=== PATIENT | female | born 1970 | race Caucasian/White ===

== ENCOUNTER 2024-07-27 15:47 | Observation (INO) ==
--- NOTE | 2024-07-27 16:10 | Emergency Department Note ---
ED Provider Note History of Present Illness Chief Complaint: Abdominal Pain Stated Complaint: ABDOMINAL PAIN Time Seen by Provider: 07/27/24 16:03 Source: patient Mode of arrival: ambulatory Limitations: no limitations This patient is a 54-year-old female who presents to the emergency department for evaluation of abdominal pain. Patient reports that she has had abdominal pain for the past 3 to 4 days. Pain is a constant 5/10 but does get worse at times. She states it feels slightly better when she pushes on the area and feels worse when she is sitting or stretching. Pain is primarily in the left lower quadrant but radiates across the lower abdomen. She does have a history of ovarian cysts and has required surgery in the past. She reports associated bloating and states that she has some abdominal pain that increases at the end of urination. She feels somewhat constipated. Otherwise no urinary symptoms, no fever/chills or nausea/vomiting. No prior colonoscopy. Home Medications Medication Instructions Recorded Confirmed Type Gut Hero Probiotic 1 cap PO DAILY 07/27/24 07/27/24 History Turmeric Powder 1 tbsp PO DAILY 07/27/24 07/27/24 History atenolol 100 mg tablet 100 mg PO DAILY 07/27/24 07/27/24 History cholecalciferol (vitamin D3) 25 25 mcg PO DAILY 07/27/24 07/27/24 History mcg (1,000 unit) capsule magnesium 200 mg tablet 200 mg PO DAILY 07/27/24 07/27/24 History multivitamin 1 tab PO DAILY 07/27/24 07/27/24 History omega 0-nru-flb-fish oil 1,000 mg 1 cap PO DAILY 07/27/24 07/27/24 History (120 mg-180 mg) capsule (Fish Oil) tirzepatide (weight loss) 5 mg/0.5 5 mg subcut WK 07/27/24 07/27/24 History mL subcutaneous pen injector (Zepbound) Allergies Allergy/AdvReac Type Severity Reaction Status Date / Time No Known Allergies Allergy Unknown Verified 07/27/24 17:40 Past Med/Surg History Problem List (Updated 07/27/24 @ 23:19 by Marium Turner PA-C) Diverticulitis of sigmoid colon (Acute) History of ovarian cystectomy Asthma (Chronic) HTN (hypertension) (Chronic) Social History Smoking Status: Former smoker Preferred Language: Serbian Feels Safe at Home: Yes Physical Exam Vital Signs Vital Signs - 24 hr 07/27/24 15:53 07/27/24 16:22 07/27/24 16:24 Temperature 36.5 C Temperature Source Skin Pulse Rate 91 H 79 82 Pulse Rate from SpO2 Sensor 83 Pulse Rhythm Respiratory Rate 16 24 Respiratory Effort / Characteristics Non-Labored Spontaneous Respiratory Depth Normal Respiratory Pattern Regular Blood Pressure 131/88 125/84 Blood Pressure Mean 102 97 Pulse Oximetry 98 97 Oxygen Delivery Method Room Air Sepsis Recent Fever Within 48 Hours No Sepsis New/Unexplained Change in Mental Status N/A Sepsis Action Taken by Nursing No Action Required 07/27/24 16:33 07/27/24 16:38 07/27/24 17:00 Temperature Temperature Source Pulse Rate 78 79 77 Pulse Rate from SpO2 Sensor 77 78 Pulse Rhythm Regular Respiratory Rate 17 17 17 Respiratory Effort / Characteristics Respiratory Depth Respiratory Pattern Blood Pressure 111/77 103/72 Blood Pressure Mean 88 82 Pulse Oximetry 97 98 98 Oxygen Delivery Method Room Air Sepsis Recent Fever Within 48 Hours Sepsis New/Unexplained Change in Mental Status Sepsis Action Taken by Nursing 07/27/24 18:33 07/27/24 18:51 Temperature Temperature Source Pulse Rate 90 88 Pulse Rate from SpO2 Sensor Pulse Rhythm Respiratory Rate 18 23 Respiratory Effort / Characteristics Respiratory Depth Respiratory Pattern Blood Pressure 116/79 119/69 Blood Pressure Mean 91 85 Pulse Oximetry 98 Oxygen Delivery Method Sepsis Recent Fever Within 48 Hours Sepsis New/Unexplained Change in Mental Status Sepsis Action Taken by Nursing VITALS: Vitals are noted on the nurse's note and reviewed by myself. GENERAL: This is a 54-year-old female, in no acute distress, well-developed well-nourished. SKIN: The skin was without rashes. EARS: External auditory canals clear, tympanic membranes pearly desir without erythema or effusion bilaterally. EYES: Pupils equal round and reactive to light and accommodation. MOUTH: Mucous membranes moist. Tonsils are not enlarged. Pharynx without erythema or exudate. NECK: Supple without nuchal rigidity. No lymphadenopathy. HEART: Regular rate and rhythm without murmurs gallops or rubs. LUNGS: Clear to auscultation bilaterally without wheezes, rales or rhonchi. ABDOMEN: Positive bowel sounds x 4. Moderate tenderness in the left lower quadrant with more mild tenderness across lower abdomen. No guarding or rebound tenderness. NEURO: Patient was alert and oriented to person place and time. Course Administered Medications Sodium Chloride (Nss) 1,000 mls @ 80 mls/hr IV .[id number] [facility] Stop: 07/28/24 22:28 Last Admin: 07/27/24 23:15 Dose: 80 mls/hr Documented By: MITCHEL Piperacillin Sod/Tazobactam Sod (Zosyn) 4.5 gm in 100 mls @ 25 mls/hr IV Q8H [facility]; Protocol Stop: 08/07/24 00:00 Last Admin: 07/27/24 23:15 Dose: 25 mls/hr Documented By: MITCHEL Discontinued Medications Piperacillin Sod/Tazobactam Sod (Zosyn) 4.5 gm in 100 mls @ 200 mls/hr IV NOW ONE Stop: 07/27/24 19:00 Last Infusion: 07/27/24 20:21 Dose: Infused Documented By: Admin: 07/27/24 19:49 Dose: 200 mls/hr Documented By: JUANITA Ioversol (Optiray 320 100ml) 93 ml IV ONCE ONE Stop: 07/27/24 17:23 Last Admin: 07/27/24 17:22 Dose: 93 ml Documented By: ESTUARDO Ketorolac Tromethamine (Ketorolac Tromethamine 15 Mg/Ml Vial) 15 mg IV NOW STA Stop: 07/27/24 18:20 Last Admin: 07/27/24 18:27 Dose: 15 mg Documented By: JUANITA Ketorolac Tromethamine (Ketorolac Tromethamine 15 Mg/Ml Vial) 15 mg IV NOW STA Stop: 07/27/24 21:52 Last Admin: 07/27/24 22:03 Dose: 15 mg Documented By: JUANITA Potassium Chloride (Potassium Chloride Crtab 20 Meq Tabcr) 40 meq PO ONE ONE Stop: 07/27/24 22:30 Last Admin: 07/27/24 23:15 Dose: 40 meq Documented By: MITCHEL Medical Decision Making Differential Diagnosis Appendicitis, ovarian cyst, ovarian torsion, TOA, PID, infections, diverticulitis, UTI, obstruction, mesenteric ischemia, aortic pathology, inflammatory bowel disease, renal colic, PUD, pancreatitis, biliary pathology, hernia, volvulus, constipation, as well as other pathologies. Laboratory Data Attestation: I reviewed the patient's lab results. 07/27/24 16:11 07/27/24 16:11 Lab Results 07/27/24 07/27/24 Range/Units 16:07 16:11 WBC 16.50 H (4.8-10.8) K/ul RBC 4.38 (4.20-5.40) M/uL Hgb 13.5 (12.0-16.0) g/dl Hct 41.0 (37.0-47.0) % MCV 93.6 (80.0-100.0) fL MCH 30.8 (25.0-34.0) pg MCHC 32.9 (32.0-36.0) g/dL RDW Std Deviation 42.6 (36.4-46.3) fL RDW Coeff of Peggy 12.3 (11.5-14.5) % Plt Count 313 (130-400) K/uL MPV 10.5 (9.4-12.4) fL Immature Gran % (Auto) 0.5 % Neut % (Auto) 73.4 % Lymph % (Auto) 18.3 % [place] % (Auto) 6.6 % Eos % (Auto) 0.8 % Baso % (Auto) 0.4 % Neut # (Auto) 12.10 H (1.40-6.50) K/uL Lymph # (Auto) 3.02 (1.20-3.40) K/uL [place] # (Auto) 1.09 H (0.11-0.59) K/uL Eos # (Auto) 0.13 (0.00-0.50) K/uL Baso # (Auto) 0.07 (0.00-0.20) K/uL Immature Gran # (Auto) 0.09 (0.01-0.20) K/uL Sodium 139 (136-145) mmol/L Potassium 3.4 L (3.5-5.1) mmol/L Chloride 103 (98-107) mmol/L Carbon Dioxide 29 (21-32) mmol/L Anion Gap 7 (3-11) BUN 16 (6-23) mg/dl Creatinine 0.57 L (0.6-1.2) mg/dl Est Cr Clr Drug Dosing 100.6 ml/min eGFR 106.59 BUN/Creatinine Ratio 28.1 H (10-20) Glucose 81 (70-99(Fasting)) mg/dl Calcium 10.0 (8.6-10.3) mg/dl Magnesium 2.1 (1.7-2.4) mg/dl Total Bilirubin 0.5 (0.2-1.0) mg/dl AST 18 (13-39) U/L ALT 17 (7-52) U/L Alkaline Phosphatase 60 (34-104) U/L Total Protein 8.4 H (6.0-8.3) gm/dl Albumin 4.5 (3.4-5.0) gm/dl Globulin 3.9 (2.5-4.0) gm/dl Albumin/Globulin Ratio 1.2 (0.9-2) Lipase 35 (11-82) U/L Urine Color Yellow Urine Appearance Clear (Clear) Urine pH 7.0 (4.5-7.5) Ur Specific [place] 1.008 (1.000-1.030) Urine Protein Negative (Negative) Urine Glucose (UA) Negative (Negative) Urine Ketones Negative (Negative) Urine Blood Trace H (Negative) Urine Nitrite Negative (Negative) Urine Bilirubin Negative (Negative) Urine Urobilinogen Negative (Negative) Ur Leukocyte Esterase Trace H (Negative) Urine WBC (Auto) 0-5 (0-5) /hpf Urine RBC (Auto) 3-5 H (0-2) /hpf U Hyaline Cast (Auto) 0-2 (0-2) /lpf U Epithel Cells (Auto) 0-2 (0-2) /hpf Urine Bacteria (Auto) None Seen (None Seen) Imaging Data Attestation: I personally reviewed and interpreted this imaging study as follows: Radiologist's Impression: Abdomen/Pelvis CT 07/27/24 16:33 INDICATION: Left lower quadrant pain. COMPARISON: No relevant priors available. TECHNIQUE: Axial CT images of the abdomen and pelvis were obtained following IV contrast administration. Coronal and sagittal reformations were reviewed. FINDINGS: Visualized lung bases appear unremarkable. The liver, gallbladder, spleen, pancreas and adrenal glands appear unremarkable. No hydronephrosis. Sigmoid colonic wall thickening with adjacent inflammatory fat stranding and diverticula present. Inflamed diverticulum versus contained perforation/fluid collection adjacent to the sigmoid colon measuring 1.7 x 1.6 cm. Otherwise no free air identified. No evidence of bowel obstruction or appendicitis. Moderate amount of retained colonic stool. The urinary bladder appears unremarkable. No acute osseous abnormality evident. IMPRESSION: 1. Sigmoid diverticulitis. Inflamed diverticulum versus contained perforation/fluid collection adjacent to the sigmoid colon measuring 1.7 x 1.6 cm. 2. Moderate amount of retained colonic stool. Electronically signed by Olivier Moses 07-27-2024 6:22 PM MDM Narrative This patient is a 54-year-old female who presents to the emergency department for evaluation of lower abdominal pain. Labs revealed a leukocytosis of 16,000. Vital signs are within normal limits. Patient is afebrile. CT scan shows evidence of sigmoid diverticulitis with a possible contained perforation/fluid collection. At this time blood cultures were drawn and patient was given a dose of Zosyn. She was given Toradol for pain. I discussed the case with general surgery, Dr. Rodriguez who recommended admission for IV antibiotics. Case was then discussed with the [facility] service who agreed to evaluate the patient for further care. All findings were discussed with the patient and multiple questions answered for the patient and . They verbalized understanding of the assessment and treatment plan. Impression Diverticulitis of sigmoid colon Discharge Plan Visit Data Chief Complaint: Abdominal Pain Stated Complaint: ABDOMINAL PAIN ED Provider: [facility] Midlevel Provider: Marium Turner Discharge Problem: Diverticulitis of sigmoid colon Patient Disposition: Admitted As Inpatient Discharge Instructions Interventions: ED Discharge Assessment Last Done: 07/27/24 22:15
[2024-07-27 16:56] LABS: Basophils # (auto) 0.07 K/uL (0.00-0.20); Basophils % (auto) 0.4 %; Eosinophils # (auto) 0.13 K/uL (0.00-0.50); Eosinophils % (auto) 0.8 %; Hemoglobin 13.5 g/dl (12.0-16.0); Immature Granulocytes # (auto) 0.09 K/uL (0.01-0.20); Immature Granulocytes % (auto) 0.5 %; Lymphocytes # (auto) 3.02 K/uL (1.20-3.40); Lymphocytes % (auto) 18.3 %; Mean Corpuscular Hemoglobin 30.8 pg (25.0-34.0); Mean Corpuscular Hgb Conc 32.9 g/dL (32.0-36.0); Mean Corpuscular Volume 93.6 fL (80.0-100.0); Mean Platelet Volume 10.5 fL (9.4-12.4); Monocytes # (auto) 1.09 K/uL (0.11-0.59); Monocytes % (auto) 6.6 %; Neutrophils % (auto) 73.4 %; Platelet Count 313 K/uL (130-400); RDW Coefficient of Variation 12.3 % (11.5-14.5); RDW Standard Deviation 42.6 fL (36.4-46.3); Red Blood Count 4.38 M/uL (4.20-5.40)
[2024-07-27 16:57] LABS: Appearance Urine Clear (Clear); Bacteria Urine Automated None Seen (None Seen); Bilirubin Urine Negative (Negative); Blood Urine Trace (Negative); Cast Urine Automated 0-2 /lpf (0-2); Color Urine Yellow; Epithelial Cell Urine Auto 0-2 /hpf (0-2); Glucose Urine UA Negative (Negative); Ketones Urine Negative (Negative); Leukocyte Esterase Urine Trace (Negative); Nitrite Urine Negative (Negative); Protein Urine Negative (Negative); Specific Gravity Urine 1.008 (1.000-1.030); Urobilinogen Urine Negative (Negative); WBC Urine Automated 0-5 /hpf (0-5)
[2024-07-27 17:05] LABS: Albumin Globulin Ratio 1.2 (0.9-2); Albumin Level 4.5 gm/dl (3.4-5.0); BUN Creatinine Ratio 28.1 (10-20); Bilirubin,Total 0.5 mg/dl (0.2-1.0); Creatinine Clr Calc Pharmacy 100.6 ml/min; Globulin 3.9 gm/dl (2.5-4.0); Potassium 3.4 mmol/L (3.5-5.1); Total Protein 8.4 gm/dl (6.0-8.3)
[2024-07-27] MEDS: OPTIRAY 320 100ml IV ONE (17:22)
--- NOTE | 2024-07-27 18:22 | CT Scan Report ---
INDICATION: Left lower quadrant pain. COMPARISON: No relevant priors available. TECHNIQUE: Axial CT images of the abdomen and pelvis were obtained following IV contrast administration. Coronal and sagittal reformations were reviewed. FINDINGS: Visualized lung bases appear unremarkable. The liver, gallbladder, spleen, pancreas and adrenal glands appear unremarkable. No hydronephrosis. Sigmoid colonic wall thickening with adjacent inflammatory fat stranding and diverticula present. Inflamed diverticulum versus contained perforation/fluid collection adjacent to the sigmoid colon measuring 1.7 x 1.6 cm. Otherwise no free air identified. No evidence of bowel obstruction or appendicitis. Moderate amount of retained colonic stool. The urinary bladder appears unremarkable. No acute osseous abnormality evident. IMPRESSION: 1. Sigmoid diverticulitis. Inflamed diverticulum versus contained perforation/fluid collection adjacent to the sigmoid colon measuring 1.7 x 1.6 cm. 2. Moderate amount of retained colonic stool. Electronically signed by Olivier Moses 07-27-2024 6:22 PM
[2024-07-27] MEDS: KETOROLAC TROMETHAMINE 15 MG/ML VIAL IV STA ×2 (18:27→22:03)
[2024-07-27] MEDS: PIPERACILLIN/TAZOBACTAM 4.5 GM/100 ML BAG IV ONE (19:49)
[2024-07-27 19:54] LABS: Magnesium 2.1 mg/dl (1.7-2.4)
--- NOTE | 2024-07-27 20:07 | History & Physical Report ---
Date of Service July 27, 2024 Assessment & Plan (1) Diverticulitis of sigmoid colon: Plan: Patient is a 54 year old female presenting to the emergency department today with complaint of abdominal pain described as "burning that radiates to my back" x 3 days. Past medical history of Hypertension, Grave's disease (currently in remission), s/p ovarian cystectomy, and history of knee surgery. * Admit to Medsurg * NPO with Iv fluid replacement * Continue Zosyn Q8 hours * Surgical consult ordered * Trend CBC, BMP- AM labs ordered * Toradol as needed for pain (2) HTN (hypertension): Plan: Continue home regimen with Atenolol Plan DVT Ppx: SCDs Code status: Full PCP: Dr. Manoj Ogden Dispo: Admit to Med/Surg Patient seen in collaboration with Dr. Estelle Johnson. Please see addendum.I spent a total of 60 minutes coordinating, documenting and providing care for this patient excluding time spent in the performance of separately billed services or time spent by another provider/QHP. History of Present Illness Primary Care Provider: Manoj Ogden MD Patient is a 54 year old female presenting to the emergency department today with complaint of abdominal pain described as "burning that radiates to my back" x 3 days. Past medical history of Hypertension, Grave's disease (currently in remission), s/p ovarian cystectomy, and history of knee surgery. In the emergency department, she is hemodynamically stable and nontoxic appearing. Leukocytosis with white count 16.5. No evidence of impaired renal functioning or UTI. Blood culture pending. CT of Abdomen and pelvis revealing sigmoid diverticulitis with inflamed diverticulum versus contained perforation/fluid collection adjacent to the sigmoid colon measuring 1.7 x 1.6 cm. Moderate amount of retained colonic stool. Zosyn initiated. Pain was controlled at the time of my exam, as she had received ketorolac prior. Associated symptoms of bloating, mild discomfort with urination, and constipation was reported. She denies fevers, illness, chest pain, breathing difficulty, N/V/D, changes to diet, skin rashes or lesions. History obtained primarily from the patient. Her was at bedside and provided additional information regarding history of present illness. Allergies Allergy/AdvReac Type Severity Reaction Status Date / Time No Known Allergies Allergy Unknown Verified 07/27/24 17:40 Home Medications Medication Instructions Recorded Confirmed Type Gut Hero Probiotic 1 cap PO DAILY 07/27/24 07/27/24 History Turmeric Powder 1 tbsp PO DAILY 07/27/24 07/27/24 History atenolol 100 mg tablet 50 mg PO BID 07/27/24 07/27/24 History cholecalciferol (vitamin D3) 25 25 mcg PO DAILY 07/27/24 07/27/24 History mcg (1,000 unit) capsule magnesium 200 mg tablet 200 mg PO DAILY 07/27/24 07/27/24 History multivitamin 1 tab PO DAILY 07/27/24 07/27/24 History omega 2-wki-vdb-fish oil 1,000 mg 1 cap PO DAILY 07/27/24 07/27/24 History (120 mg-180 mg) capsule (Fish Oil) tirzepatide (weight loss) 5 mg/0.5 5 mg subcut WK 07/27/24 07/27/24 History mL subcutaneous pen injector (Zepbound) Past Med/Surg History Problem List (Updated 07/28/24 @ 08:52 by Frank Rodriguez MD) Diverticulitis large intestine w/o perforation or abscess w/o bleeding Diverticulitis of sigmoid colon (Acute) History of ovarian cystectomy Asthma (Chronic) HTN (hypertension) (Chronic) Social History Smoking Status: Never smoker Hx Alcohol Use: Yes Hx Substance Use: No Preferred Language: Latvian [employer] Required: No Beliefs That Will Affect Care: None Current Living Situation: Spouse Feels Safe at Home: Yes Safety Concerns: Feels Safe At This Time Review of Systems Review of Systems: All systems reviewed & are unremarkable except as noted in HPI & below Physical Exam Constitutional: WD/WN, vitals as above Eyes: PERRL, conjunctivae normal, anicteric sclerae ENMT: external ear and nose normal, oropharynx normal Respiratory: normal respiratory effort, lungs clear to auscultation Cardiovascular: RRR, no murmur, no edema Gastrointestinal (Abdomen): Inspection/Auscultation: normal bowel sounds Percussion/Palpation: + abdomen tender (periumbilical, LUQ, LLQ) and abdomen soft; no abdominal mass and no ascites Musculoskeletal: no cyanosis or clubbing, extremities motor strength 5/5 Skin: no rashes, warm and dry Neurologic: PERRL, EOMI, accommodation nl, no face palsy, no dysarthria Psychiatric: A+Ox3, euthymic affect Results & Data Results & Data Vital Signs (Past 12 Hours) Vital Signs Temp Pulse Resp BP Pulse Ox O2 Del Method 07/27/24 18:33 90 18 116/79 98 07/27/24 17:00 77 17 103/72 98 07/27/24 16:38 79 17 98 Room Air 07/27/24 16:33 78 17 111/77 97 07/27/24 16:24 82 24 125/84 97 07/27/24 16:22 79 07/27/24 15:53 36.5 C 91 H 16 131/88 98 Room Air Laboratory Results Short CBC 07/27/24 Range/Units 16:11 WBC 16.50 H (4.8-10.8) K/ul Hgb 13.5 (12.0-16.0) g/dl Hct 41.0 (37.0-47.0) % Plt Count 313 (130-400) K/uL BMP 07/27/24 16:11 Sodium 139 Potassium 3.4 L Chloride 103 Carbon Dioxide 29 BUN 16 Creatinine 0.57 L Glucose 81 Calcium 10.0 Liver Function 07/27/24 Range/Units 16:11 Total Bilirubin 0.5 (0.2-1.0) mg/dl AST 18 (13-39) U/L ALT 17 (7-52) U/L Alkaline Phosphatase 60 (34-104) U/L Albumin 4.5 (3.4-5.0) gm/dl Urine 07/27/24 Range/Units 16:07 Urine Color Yellow Urine Appearance Clear (Clear) Urine pH 7.0 (4.5-7.5) Ur Specific [place] 1.008 (1.000-1.030) Urine Protein Negative (Negative) Urine Glucose (UA) Negative (Negative) I personally reviewed and interpreted the labs. Diagnostic Findings Abdomen/Pelvis CT 07/27/24 16:33 INDICATION: Left lower quadrant pain. COMPARISON: No relevant priors available. TECHNIQUE: Axial CT images of the abdomen and pelvis were obtained following IV contrast administration. Coronal and sagittal reformations were reviewed. FINDINGS: Visualized lung bases appear unremarkable. The liver, gallbladder, spleen, pancreas and adrenal glands appear unremarkable. No hydronephrosis. Sigmoid colonic wall thickening with adjacent inflammatory fat stranding and diverticula present. Inflamed diverticulum versus contained perforation/fluid collection adjacent to the sigmoid colon measuring 1.7 x 1.6 cm. Otherwise no free air identified. No evidence of bowel obstruction or appendicitis. Moderate amount of retained colonic stool. The urinary bladder appears unremarkable. No acute osseous abnormality evident. IMPRESSION: 1. Sigmoid diverticulitis. Inflamed diverticulum versus contained perforation/fluid collection adjacent to the sigmoid colon measuring 1.7 x 1.6 cm. 2. Moderate amount of retained colonic stool. Electronically signed by Olivier Moses 07-27-2024 6:22 PM Code Status & VTE Plan Code Status FULL VTE Prophylaxis Plan VTE Prophylaxis will be ordered: Yes Supervising Physician Co-Signing Physician Notes Pt was seen and examined by myself, Estelle Johnson MD on the day of service. Care was coordinated with Latesha HURLEY and MEI Alvarenga. Pt presenting with abdominal pain, CT abd pelvis concerning for diverticulitis with abscess Possible sepsis, mild tachycardia, leukocytosis IV Zosyn NPO, prn pain control, antiemetics as needed General surgery consult Otherwise as above. I spent a total [id number] coordinating, documenting, and providing care for this patient excluding time spent in the performance of separately billed services
[2024-07-27] MEDS ORDERED: ONDANSETRON INJ 2 MG/ML 2 ML VIAL IV PRN (22:29)
[2024-07-27] MEDS: PIPERACILLIN/TAZOBACTAM 4.5 GM/100 ML BAG IV SCH (23:15)
[2024-07-27] MEDS: SODIUM CHLORIDE 0.9% 1,000 ML IV SCH (23:15)
[2024-07-27] MEDS: POTASSIUM CHLORIDE CRTAB 20 MEQ TABCR PO ONE (23:15)
[2024-07-27] MEDS ORDERED: ATENOLOL 50 MG TABLET PO SCH (23:55)
--- OUTSIDE RECORDS SUMMARY | 2024-07-28 04:24 | External Medical Summary | Summary of Care ---
Author Name Unknown Organization [facility] Address [address] [facility] [place] [address] Phone [phone] Care Team Providers Care Insurance Policy Clerk Name Role Phone Alin CARPIO MD, Manoj Sosa Primary Care Provider [phone] Reason for Visit * Reason Comments Cold Symptoms Encounter Details Date Type Department Care Team (Late st Contact Info) Description 02/28/2024 11:40 AM EST Office Visit General Internal Medicine [facility] [address] [place] [address] Albino Silva [address] [facility] [address] Acute laryngotracheitis* Allergies No known active allergiesdocumented as of this encounter (statuses as of 02/28/2024) Medications Cholecalciferol (VITAMIN D3) 25 MCG (1000 UT) CAPS Take 1 Capsule by mouth in the morning. 30 Cap 12/04/19 20 Active Zepbound 5 MG/0.5ML Subcutaneous Solution Auto-injector (Tirzepatide-Weight Management)Indication s:Obesity, Class II, BMI 35-39.9, isolated (see actual BMI),HTN, goal below 140/90,Abnormal weight gain Inject 5 mg under the skin once a week. 2 mL 2 01/29/20 24 Active Atenolol 100 MG Oral Tablet (Tenormin) TAKE 1/2 TABLET BY MOUTH TWICE DAILY 90 Tablet 02/03/20 24 Active Benzonatate 200 MG Oral CapsuleIndications:Ac megan laryngotracheitis Take 1 Capsule by mouth 3 times a day as needed for Cough. 30 Capsule 1 02/28/20 24 Active Levonorgestrel 20 MCG/24HR Intrauterine Intrauterine Device Inserted 04/29/2015 1 Each 0 04/29/19 16 024 Discontin ued(End of Procedure ) Cyclobenzaprine HCl 10 MG Oral Tablet (Flexeril) Take 1 Tab by mouth at bedtime as needed for Muscle spasms. 10 Tab 01/20/20 21 024 Discontin ued(Medic ation List Clean Up) documented as of this encounter (statuses as of 02/28/2024) Active Problems Problem Noted Date Diagnosed Date Allergic rhinitis 01/28/2007 Headache 11/09/2004 Esophageal reflux 07/02/2001 Palpitations 07/02/2001 Female genital symptoms 07/26/2000 Overview (01/21/2017): ICD-10 update of inactive term Lipoma Overview (01/21/2017): ICD-10 update of inactive term documented as of this encounter (statuses as of 02/28/2024) Resolved Problems Problem Noted Date Diagnosed Date Resolved Date Asthma with severity to be determined 10/13/2009 12/17/2012 Overview (08/01/2015): Per Asthma Taxonomy ICD-10 update of inactive term ADVANCE DIRECTIVE INFORMATION 09/25/2004 02/24/2024 Overview (09/25/2004): No, Advance Directive brochure given to patient at prior appointment. Asthma, allergic 07/02/2001 10/13/2009 documented as of this encounter (statuses as of 02/28/2024) Immunizations Name Administration Dates Next Due Covid-19 Ad26, Single Dose (Navdeep/J&J) 08/01/2020 Seasonal Influenza Vac., MDV , IM, 0.5 mL (Fluzone) 03/13/2013,01/23/2012,02/18/2007 Seasonal Influenza, PF, 6 M & above, IM , (FluLaval or Fluzone) 01/14/2023,05/01/2022,02/28/2021,2019,05/16/2018 TDAP (age 10 and older)(Boostrix) 04/17/2022,06/2011 Zoster Vaccine Recombinant (Shingrix) 12/04/2019 ,06/04/2019 documented as of this encounter Social History Tobacco Use Types Packs/Day Years Used Date Smoking Tobacco: Former Cigarettes 1 10 0 04/22/1982 - 04/22/1992 Smokeless Tobacco: Never Comments:no passive smoke ex posures Alcohol Use Standard Drinks/Week Comments Not Currently 0 (1 standard drink = 0.6 oz pur e alcohol) rarely PHQ-2 Answer Date Recorded PHQ-2 Score 0 11/27/2018 Hunger Vital Sign Answer Date Recorded Within the past 12 months, y ou worried that your food would run out before you got the money to buy more. Never true 01/17/20 24 Within the past 12 months, t he food you bought just didn't last and you didn't have money to get more. Never true 01/17/2024 Childcare Answer Date Recorded Do you feel overwhelmed with taking care of a child, family member or friend? No 01/17/2024 Does your family need help f inding childcare? (Household - for ages 0-17 years) Not on file 01/17/2024 Clothing Answer Date Recorded Have you been unable to get clothing when it was really needed? No 01/17/2024 Is your family able to get c lothes or diapers when needed? (Household - for ages 0-17 years) Not on file 01/17/2024 Personal Safety Answer Date Recorded Do you feel unsafe or have concerns for your saf ety? No 01/17/2024 Do you have concerns for you r family's safety? (Household - for ages 0-17 years) Not on file 01/17/2024 Utilities Answer Date Recorded Do you have trouble paying y our heating, water, or electric bill? No 01/17/2024 Is your family able to pay t he heat, water, or electric bill? (Household - for ages 0-17 years) Not on file 01/17/2024 Does your family have access to good internet? (Household - for ages 0-17 years) Not on file 01/17/2024 Employment Status Answer Date Recorded Are you unemployed or without regular income? No 01/17/2024 Does the household have a re gular source of income? (Household - for ages 0-17 years) Not on file 01/17/2024 Social Connections Answer Date Recorded How often do you feel lonely or isolated from th ose around you? Never 01/17/2024 Financial Resource Strain Answer Date R ecorded Do you have any trouble payi ng for your medications, or do you think you might in the future? No 01/17/2024 Does your family have troubl e paying for medicine? (Household - for ages 0-17 years) Not on file 01/17/2024 Transportation Needs Answer Date Record ed Do you have trouble getting a ride to medical visits or work? (Adult - for ages 18 years and over) Not on file 01/17/2024 Does your family have a hard time getting a ride to doctors visits? (Household - for ages 0-17 years) Not on file 01/17/2024 Has lack of transportation k ept you from medical appointments, meetings, work, or from getting things needed for daily living? Check all that apply. No 01/17/2024 Do you (or your family) have trouble finding or paying for a ride (transportation)? (Household - for ages 0-17 years) Not on file 01/17/2024 Housing Stability Answer Date Recorded Do you currently live in a s helter or have no steady place to sleep at night? No 01/17/2024 Do you think you are at risk of becoming homeless? (Adult - for ages 18 years and over) Not on file 01/17/2024 Does your family worry about paying for your home or becoming homeless? (Household - for ages 0-17 years) Not on file 0 01/17/2024 Are you homeless or worried that you might be in the future? No 01/17/2024 Are you (or your family) antonia eless or worried that you might be in the future? (Household - for ages 0-17 years) Not on file Food Insecurity Answer Date Recorded Do you need food for this week? No 01/17/2024 Are you able to get enough f ood for your family? (Household - for ages 0-17 years) Not on file 01/17/2024 Does your family need food t his week? (Household - for ages 0-17 years) Not on file 01/17/2024 Do you always have enough fo od for your family? 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 Not on file Not on file Not on file Not on file Not on file Not on file documented as of this encounter Last Filed Vital Signs Vital Sign Reading Time Taken Comments Blood Pressure 122/74 02/28/2024 11:39 AM EST Pulse 66 02/28/2024 11:39 AM EST Temperature 36.7 °C (98.1 °F) 02/28/2024 11:[address] Respiratory Rate - - Oxygen Saturation 97% 02/28/2024 11:39 AM EST Inhaled Oxygen Concentration - - Weight 75 kg (165 lb 4.8 oz) 02/28/2024 11:39 AM EST Height 157.5 cm (5' 2.01") 02/28/2024 11:[address] Body Mass Index 30.23 02/28/2024 11:39 AM EST documented in this encounter Progress Notes * Albino Silva, DO - 02/28/2024 11:46 AM EST Subjective Coral Greenberg is a 53 year old female. Chief Complaint Patient presents with Cold Symptoms Text in this note was generated using an ambient documentation service. I discussed the use of a device to record and summarize our discussion today. All persons present during the encounter consented to its use. HPI: Patient presents for cough, congestion. History of Present Illness The patient, with a history of asthma, presents with respiratory symptoms that began on Saturday. Initially, she experienced classic cold symptoms including a runny nose, sneezing, and watery eyes. Sheinitially attributed these symptoms to allergies. However, the symptoms then developed into chest congestion. Does not note any increased wheezing, orthopnea or dyspnea. Has been keeping well hydrated. Does have known history of asthma. No fever chills. No sore throat or dysphagia. No sinus pain/pressure. No ear congestion or drainage PMH: Patient Active Problem List Diagnosis Female genital symptoms Esophageal reflux Palpitations Lipoma Headache Allergic rhinitis Current Outpatient Medications Medication Sig Dispense Refill Cholecalciferol (VITAMIN D3) 25 MCG (1000 UT) CAPS Take 1 Capsule by mouth in the morning. 30 Cap 0 Zepbound 5 MG/0.5ML Subcutaneous Solution Auto-injector (Tirzepatide-Weight Management) Inject 5 mgunder the skin once a week. 2 mL 2 Atenolol 100 MG Oral Tablet (Tenormin) TAKE 1/2 TABLET BY MOUTH TWICE DAILY 90 Tablet 0 No current facility-administered medications for this visit. 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 Asthma, allergic Depressive disorder, not elsewhere classified HTN, goal to be determined Past Surgical History: Procedure Laterality Date COLPOSCOPY OF CERVIX W/BIOPSY LAPAROSCOPY DIAGNOSTIC 7.29.05 Ruptured L hemorhagic ovarian cyst [facility] MRI BRAIN WITH CONTRAST 2.14.02 normal mri brain Review of patient's allergies indicates: No Known Allergies Family History Problem Relation Name Age of Onset Hypertension Mother Allergies Father hayfever Other (Other) Father vertigo Atrial fibrillation Father Asthma Brother Cervical Cancer Grandmother (Maternal) Cancer Grandfather (Maternal) Lung Cancer Stroke Grandmother (Paternal) @89 Heart Disorder Grandfather (Paternal) chf Alcohol and Other Disorders Associated Grandfather (Paternal) Heart Disorder Aunt (Unspecified) mi No Past Hx None no breast/ovarian/colon cancer Family Status Relation Status Mo Alive Fa Alive Sis Alive Bro Alive MGMA MGFA at age 87 Lung Cancer PGMA at age 89 PGFA AUNT (Not Specified) NONE (Not Specified) Social History Socioeconomic History Marital status: Spouse name: Not on file Number of children: 2 Years of education: Not on file Highest education level: Not on file Occupational History Occupation: staff assitant Employer: [employer] [phone] Comment: [employer] Employer: [employer] Tobacco Use Smoking status: Former Current packs/day: 0.00 Average packs/day: 1 pack/day for 10.0 years (10.0 ttl pk-yrs) Types: Cigarettes Start date: 04/22/1982 Quit date: 04/22/1992 Years since quittin.8 Smokeless tobacco: Never Tobacco comments: no passive smoke exposures Vaping Use Vaping status: Never Used Substance and Sexual Activity Alcohol use: Not Currently Comment: rarely Drug use: No Sexual activity: Yes Partners: Male control/protection: Condom Other Topics Concern Service Not Asked Blood Transfusions Not Asked Caffeine Concern Not Asked Occupational Exposure Not Asked Hobby Hazards Not Asked Sleep Concern Not Asked Stress Concern Not Asked Weight Concern Not Asked Special Diet Not Asked Back Care Not Asked Exercise Not Asked Bike Helmet Not Asked Seat Belt Not Asked Self-Exams Yes Comment: breast, occ Social History Narrative [employer] [place] [place] INFORMATION ENVIRONMENTAL HISTORY: Type of Home: [place] Type of Heating System: Oil and Forced air Air Conditioning: No Basement: None Home have cockroaches: No Irritants in the home: None Patient's bedroom location: Floor: first Type of rogelio: Carpeting Beds: Number: 1 Type of beds: Mattress Pillows: Number: 1 Type of pillows: Foam Bedroom contains: Minimal items Pets: 1 cat(s) [place]: No [employer] optometric assistant; 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 Entered by: Fernando Brown MD 01/28/2007 Social Needs Financial Resource Strain: Low Risk (01/17/2024) Financial Resource Strain Do you have any trouble paying for your medications, or do you think you might in the future? (Adult - for ages 18 years and over): No Does your family have trouble paying for medicine? (Household - for ages 0-17 years): Not on file Food Insecurity: No Food Insecurity (01/17/2024) Food Insecurity Do you need food for this week? (Adult - for ages 18 years and over): No Are you able to get enough food for your family? (Household - for ages 0-17 years): Not on file Does your family need food this week? (Household - for ages 0-17 years): Not on file Do you always have enough food for your family? (Household - for ages 0-17 years): Not on file Transportation Needs: No Transportation Needs (01/17/2024) Transportation Needs Do you have trouble getting a ride to medical visits or work? (Adult - for ages 18 years and over):Not on file Does your family have a hard time getting a ride to doctors’ visits? (Household - for ages 0-17 years): Not on file Has lack of transportation kept you from medical appointments, meetings, work, or from getting things needed for daily living? Check all that apply. (Adult - for ages 18 years and over): No Do you (or your family) have trouble finding or paying for a ride (transportation)? (Household - for ages 0-17 years): Not on file Social Connections: Socially Integrated (01/17/2024) Social Connections How often do you feel lonely or isolated from those around you? (Adult - for ages 18 years and over): Never Housing Stability: Low Risk (01/17/2024) Housing Stability Do you currently live in a alf or have no steady place to sleep at night? (Adult - for ages 18 years and over): No Do you think you are at risk of becoming homeless? (Adult - for ages 18 years and over): Not on file Does your family worry about paying for your home or becoming homeless? (Household - for ages 0-17 years): Not on file Are you homeless or worried that you might be in the future? (Adult - for ages 18 years and over): No Are you (or your family) homeless or worried that you might be in the future? (Household - for ages0-17 years): Not on file Review of Systems Constitutional: Negative for chills and fever. HENT: Positive for congestion and postnasal drip. Negative for ear pain, sinus pressure, sinus painand sore throat. Eyes: Negative for photophobia and itching. Respiratory: Positive for cough. Negative for apnea, chest tightness, shortness of breath and wheezing. Cardiovascular: Negative for chest pain and palpitations. Gastrointestinal: Negative for abdominal distention, abdominal pain, nausea and vomiting. Genitourinary: Negative for dysuria and frequency. Musculoskeletal: Negative for arthralgias and myalgias. Skin: Negative for pallor and rash. Neurological: Negative for dizziness, light-headedness and headaches. Psychiatric/Behavioral: Negative for sleep disturbance. The patient is not nervous/anxious. Objective BP 122/74 (BP Site: Left Arm, BP Position: Sitting, BP Cuff Size: Regular) | Pulse 66 | Temp 36.7 °C (98.1 °F) (Tympanic) | Ht 1.575 m (5' 2.01") | Wt 75 kg (165 lb 4.8 oz) | SpO2 97% | BMI 30.23 kg/m² | BSA 1.81 m² Physical Exam Constitutional: General: She is not in acute distress. Appearance: She is not ill-appearing. HENT: Head: Normocephalic and atraumatic. Right Ear: Tympanic membrane, ear canal and external ear normal. Left Ear: Tympanic membrane, ear canal and external ear normal. Nose: Congestion present. No rhinorrhea. Comments: Post nasal drip present Mouth/Throat: Mouth: Mucous membranes are moist. Pharynx: Oropharynx is clear. Eyes: Extraocular Movements: Extraocular movements intact. Conjunctiva/sclera: Conjunctivae normal. Pupils: Pupils are equal, round, and reactive to light. Cardiovascular: Rate and Rhythm: Normal rate and regular rhythm. Pulses: Normal pulses. Heart sounds: Normal heart sounds. No murmur heard. No friction rub. No gallop. Pulmonary: Effort: Pulmonary effort is normal. Breath sounds: Normal breath sounds. No wheezing, rhonchi or rales. Abdominal: General: Bowel sounds are normal. There is no distension. Palpations: Abdomen is soft. There is no mass. Tenderness: There is no abdominal tenderness. Musculoskeletal: General: No deformity. Normal range of motion. Cervical back: Normal range of motion and neck supple. Right lower leg: No edema. Left lower leg: No edema. Lymphadenopathy: Cervical: No cervical adenopathy. Skin: General: Skin is warm and dry. Coloration: Skin is not jaundiced. Findings: No rash. Neurological: General: No focal deficit present. Mental Status: She is oriented to person, place, and time. Cranial Nerves: No cranial nerve deficit. Sensory: No sensory deficit. Motor: No weakness. Psychiatric: Mood and Affect: Mood normal. Behavior: Behavior normal. ASSESSMENT/PLAN: Acute laryngotracheitis (Primary) - Benzonatate 200 MG Oral Capsule; Take 1 Capsule by mouth 3 times a day as needed for Cough. Plan: Patient presents to office with likely viral URI. Seems to be getting better. No signs of LRTI or asthma exacerbation at this time Continue stay well hydrated. Benzonatate 200 mg three times daily as needed for cough. Counseled on common side effects which tomonitor Continue other medications. Blood pressure currently managed on atenolol 100 mg daily Should follow-up with office if any persistent or worsening symptoms Follow Up: Return if symptoms worsen or fail to improve, for Follow up next routine with PCP as scheduled. | For: Follow up next routine with PCP as scheduled | Check-out note: Follow up as needed Albino Silva DO documented in this encounter Nursing Notes * Tabitha Pinedo CMA - 02/28/2024 11:38 AM EST Patient presents today with complaints of cold symptoms. She states that she has a cough that will cause sharp back pain. She is also having chest congestion. She initially was having sinus congestion with PND, but now have chest symptoms. She will cough to the point that she becomes dizzy. documented in this encounter Plan of Treatment Upcoming Encounters Date Type Department Care Team (Late st Contact Info) Description 03/24/2024 7:30 AM EST Imaging Radiology [facility] [address] [facility] [address] [facility] [place] [id number] 04/28/2024 7:40 AM EST Office Visit Family Practice [facility] [address] [facility] [address] [place] [address] Manoj Ogden III, MD [address] [facility] [place] [address] 05/06/2024 8:40 AM EST Office Visit Nutrition & Weight Management, [facility] [address] [place] [id number] Eleanor Bowsre PA-C [address] [place] [id number] Health Maintenance Due Date Last Done Comments Hepatitis B Vaccine (1 of 3 - 19+ 3-dose series) 1987 Colonoscopy 2013 Sigmoidoscopy 2013 Fecal Occult Blood Test 12/03/2019 12/02/2018 Depression Screening 06/04/2020 06/04/2019 COVID-19 Vaccine ( season) 2023 08/01/2020 Influenza Vaccine (FLU shot) (#1) 2023 01/14/2023, 05/01/2022, 02/28/2021, Additional history exists Mammogram 03/21/2024 03/21/2023, 01/21, 01/18/2021, Additional history exists Cologuard 05/29/2026 05/29/2023, 04/23, 05/14/2023, Additional history exists Colorectal Cancer Screening 05/29/2026 Diabetes Screening 07/17/2026 07/18/2023, 0 04/29/2023, 10/10/2021, Additional history exists Pap Smear 01/22/2027 01/23/2024, 12/21, 10/16/2013, Additional history exists Lipid Panel 04/29/2028 04/29/2023, 04/23, 03/16/2013, Additional history exists Cervical Cancer Screening 01/22/2029 HPV/Co-Test 01/22/2029 01/23/2024 DTap/Tdap Vaccines (3 - Td or Tdap) 04/17/2032 04/17/2022, 01/23/2012 Zoster Vaccines Completed 12/04/2019, 06/04/2019 HPV (Gardasil) Vaccine Aged Out No lo nger eligible based on patient's age to complete this topic MENINGOCOCCAL (MENACTRA/MENVEO) Aged Out No longer eligible based on patient's age to complete this topic Pneumococcal Vaccine: Pediatrics (0 to 5 Years) and At-Risk Patients (6 to 64 Years) Aged Out No longer eligible based on patient's age to complete this topic documented as of this encounter Medical Devices Not on filedocumented as of this encounter Visit Diagnoses Diagnosis Acute laryngotracheitis- Primary Acute laryngotracheitis without mention of obstruction documented in this encounter Care Teams Insurance Policy Clerk Relationship Specialty Start Date End Date Manoj Ogden III, MD [address] [place] [address] PCP - General 06/03/1997 documented as of this encounter
--- OUTSIDE RECORDS SUMMARY | 2024-07-28 04:24 | External Medical Summary | Summary of Care ---
Author Name Unknown Organization [facility] Address [address] [place] [address] Phone [phone] Care Team Providers Care Scooping Machine Tender Name Role Phone Alin CARPIO MD, Manoj Sosa Primary Care Provider [phone] Reason for Visit * Reason Onset Date Comments Physical-Exam Medication Administration 05/05/2024 Flu an d/or Pneumo Inj Encounter Details Date Type Department Care Team (Latest Contact Info) Description 05/05/2024 9:20 AM EST Office Visit Family Practice [facility] [address] [facility] [place] [address] Manoj Ogden III, MD [facility] [address] Routine medical exam*; Class 2 severe obesity due to excess calories with serious comorbidity and body mass index (BMI) of 35.0 to 35.9 in adult (HCC); Need for prophylactic vaccination and inoculation against influenza; Screening for cardiovascular condition Allergies No known active allergiesdocumented as of this encounter (statuses as of 2024) Medications Cholecalciferol (VITAMIN D3) 25 MCG (1000 UT) CAPS Take 1 Capsule by mouth in the morning. 30 Cap 12/04/19 20 Active Atenolol 100 MG Oral Tablet (Tenormin) TAKE 1/2 TABLET BY MOUTH TWICE DAILY 90 Tablet 02/03/20 24 Active Benzonatate 200 MG Oral CapsuleIndications:Ac stebbins laryngotracheitis Take 1 Capsule by mouth 3 times a day as needed for Cough. 30 Capsule 1 02/28/20 24 Active Additional Information Patient not taking.Reported on 05/06/2024 Zepbound 5 MG/0.5ML Subcutaneous Solution Auto-injector (Tirzepatide-Weight Management)Indication s:Obesity, Class II, BMI 35-39.9, isolated (see actual BMI),HTN, goal below 140/90,Abnormal weight gain Inject 5 mg under the skin once a week. 6 mL 05/01/19 25 Active documented as of this encounter (statuses as of 2024) Active Problems Problem Noted Date Diagnosed Date Class 2 severe obesity due t o excess calories with serious comorbidity and body mass index (BMI) of 35.0 to 35.9 in adult 05/05/2024 Allergic rhinitis 01/28/2007 Headache 11/09/2004 Esophageal reflux 07/02/2001 Palpitations 07/02/2001 Female genital symptoms 07/26/2000 Overview (01/21/2017): ICD-10 update of inactive term Lipoma Overview (01/21/2017): ICD-10 update of inactive term documented as of this encounter (statuses as of 2024) Resolved Problems Problem Noted Date Diagnosed Date Resolved Date Asthma with severity to be determined 10/13/2009 12/17/2012 Overview (08/01/2015): Per Asthma Taxonomy ICD-10 update of inactive term ADVANCE DIRECTIVE INFORMATION 09/25/2004 02/24/2024 Overview (09/25/2004): No, Advance Directive brochure given to patient at prior appointment. Asthma, allergic 07/02/2001 10/13/2009 documented as of this encounter (statuses as of 2024) Immunizations Name Administration Dates Next Due Covid-19 Ad26, Single Dose (Navdeep/J&J) 08/01/2020 Seasonal Influenza Vac., MDV , IM, 0.5 mL (Fluzone) 03/13/2013,01/23/2012,02/18/2007 Seasonal Influenza, PF, 6 M & above, IM , (FluLaval or Fluzone) 01/14/2023,05/01/2022,02/28/2021,2019,05/16/2018 Seasonal Influenza, Trivalen t, (IIV3), PF, (Fluzone) 05/05/2024 TDAP (age 10 and older)(Boostrix) 04/17/2022,06/2011 Zoster [...] 0-17 years) Not on file 01/17/2024 Comments No Sex and Gender Information Value Date Recorded [...] Sign Reading Time Taken Comments Blood Pressure 117/82 05/05/2024 9:32 AM EST Pulse 73 05/05/2024 9:32 AM EST Temperature 37.1 °C (98.7 °F) 05/05/2024 9:32 AM ES T Respiratory Rate 16 05/05/2024 9:32 AM EST Oxygen Saturation - - Inhaled Oxygen Concentration - - Weight 73.9 kg (163 lb) 05/05/2024 9:32 AM EST Height 157.5 cm (5' 2.01") 05/05/2024 9:32 AM ES T Body Mass Index 29.8 05/05/2024 9:32 AM EST documented in this encounter Progress Notes * Alin III, Manoj Sosa MD - 05/05/2024 9:54 AM EST Subjective: Coral Greenberg is a 53 year old female. Chief Complaint Patient presents with Physical-Exam Medication Administration Flu and/or Pneumo Inj HPI: Physical examination on [facility] feeling much better joint pain has lessened bowels are moreregular no longer feels anxiety sleeping better at night eyes have been checked sees dentist regularly walking about 20 minutes or more 3 days a week has to get around campus no exertional chest painshortness breast claudication or swelling no ear concerns no problems swallowing no dysuria or hematuria no blood in her stools PHM: Patient Active Problem List Diagnosis Female genital symptoms Esophageal reflux Palpitations Lipoma Headache Allergic rhinitis Class 2 severe obesity due to excess calories with serious comorbidity and body mass index (BMI) of35.0 to 35.9 in adult ([facility]) Current Outpatient Medications Medication Sig Dispense Refill Atenolol 100 MG Oral Tablet (Tenormin) TAKE 1/2 TABLET BY MOUTH TWICE DAILY 90 Tablet 0 Benzonatate 200 MG Oral Capsule Take 1 Capsule by mouth 3 times a day as needed for Cough. 30 Capsule 1 Zepbound 5 MG/0.5ML Subcutaneous Solution Auto-injector (Tirzepatide-Weight Management) Inject 5 mgunder the skin once a week. 6 mL 0 Cholecalciferol (VITAMIN D3) 25 MCG (1000 UT) CAPS Take 1 Capsule by mouth in the morning. 30 Cap 0 No current facility-administered medications for this visit. 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 Asthma, allergic Depressive disorder, not elsewhere classified HTN, goal to be determined Past Surgical History: Procedure Laterality Date COLPOSCOPY OF CERVIX W/BIOPSY LAPAROSCOPY DIAGNOSTIC 7.29.05 Ruptured L hemorhagic ovarian cyst - Andreas MRI BRAIN WITH CONTRAST 2.14.02 normal mri brain Review of patient's allergies indicates: No Known Allergies Objective: BP 117/82 | Pulse 73 | Temp 98.7 °F (37.1 °C) | Resp 16 | Ht 5' 2.01" (1.575 m) | Wt 163 lb (73.9kg) | LMP 04/26/2015 (Exact Date) | BMI 29.80 kg/m² | BSA 1.8 m² Physical Exam: General: alert, healthy, and no distress Eye Exam: PERRLA, extraocular movements intact, conjunctiva are pink and non- injected, sclera clear Ears: External ears normal, Canals clear, TM's Normal Oropharynx: no exudate, no erythema, lips, buccal mucosa, and tongue normal, and mucous membranes are moist Neck: supple, no adenopathy, no bruits, thyroid normal size, non-tender, without nodularity Heart: regular rate & rhythm, no murmur, and no gallops Lungs: chest symmetric with normal AP diameter, no chest deformities noted, no chest wall tenderness, lungs clear to auscultation Pulses: carotid=2/4 w/o bruits Abdomen: abdomen soft, non-tender, normal bowel sounds, and no masses or organomegaly Extremities: no edema, no clubbing, no cyanosis Neuro Exam: alert & oriented x 3 with fluent speech, reflexes normal and symmetric ASSESSMENT/PLAN: Routine medical exam (Primary) Class 2 severe obesity due to excess calories with serious comorbidity and body mass index (BMI) of35.0 to 35.9 in adult (HCC) Need for prophylactic vaccination and inoculation against influenza - INFLUENZA VAC, TRIVALENT, (IIV3), PF, 0.5 ML (FLUZONE) Labs were done fasting sugar of 80 GFR of 110 potassium of 4.3 calcium of 9.9 Flu vaccine given Prevnar discussed Sun protection discussed Manoj Ogden III, MD * Rosy Graham RN - 05/05/2024 9:31 AM EST Discuss Zepbound. documented in this encounter Plan of Treatment Upcoming Encounters Date Type Department Care Team (Late st Contact Info) Description 05/05/2025 9:20 AM EST Office Visit Family Practice [facility] [address] [facility] [place] [address] Manoj Ogden III, MD [address] [place] [address] Scheduled Orders Name Type Priority Associated Diagnoses Orde r Schedule LIPID PANEL WITH DIRECT LDL IF TG IS HIGH Lab Routine Screening for cardiovascular condition Expected: 2024, Expires: 05/05/2025 Health Maintenance Due Date Last Done Comments Hepatitis B Vaccine (1 of 3 - 19+ 3-dose series) 1987 Colonoscopy 2013 Sigmoidoscopy 2013 Pneumococcal Vaccine: 50+ Years (1 of 1 - PCV) 2018 Fecal Occult Blood Test 12/03/2019 12/02/2018 Depression Screening 06/04/2020 06/04/2019 COVID-19 Vaccine ( season) 2023 08/01/2020 Mammogram 03/24/2025 03/24/2024, 02/22, 02/15/2022, Additional history exists Cologuard 05/29/2026 05/29/2023, 04/23, [...] 04/17/2022, 01/23/2012 Zoster Vaccines Completed 12/04/2019, 06/04/2019 Influenza Vaccine (FLU shot) Completed , 01/14/2023, 05/01/2022, Additional history exists HPV (Gardasil) Vaccine Aged Out No lo nger eligible based on patient's age to complete this topic MENINGOCOCCAL (MENACTRA/MENVEO) Aged Out No longer eligible based on patient's age to complete this topic documented as of this encounter Medical Devices Not on filedocumented as of this encounter Visit Diagnoses Diagnosis Routine medical exam- Primary Routine general medical examination at a health care facility Class 2 severe obesity due to excess calories with serious comorbidity and body mass index (BMI) of 35.0 to 35.9 in adult (HCC) Need for prophylactic vaccination and inoculation against influenza Screening for cardiovascular condition Screening for other and unspecified cardiovascular conditions documented in this encounter Care Teams Scooping Machine Tender Relationship Specialty Start Date End Date Manoj Ogden III, MD [address] [facility] [place] [address] PCP - General 06/03/1997 documented as of this encounter
--- OUTSIDE RECORDS SUMMARY | 2024-07-28 04:24 | External Medical Summary | Summary of Care ---
Author Name Unknown Organization [facility] Address [address] [place] [facility] [place] [address] Phone [phone] Care Team Providers Care Circuit Walker Name Role Phone Alin CARPIO MD, Keysha Sosa Primary Care Provider [phone] Reason for Visit * Reason Comments eRx-Medication Refill Encounter Details Date Type Department Care Team (Late st Contact Info) Description 05/14/2024 Refill Family Practice [facility] 200 [facility] [place] [address] Keysha Winters III, MD 200 [place] [address] Allergies No known active allergiesdocumented as of this encounter (statuses as of 05/14/2024) Medications Cholecalciferol (VITAMIN D3) 25 MCG (1000 UT) CAPS Take 1 Capsule by mouth in the morning. 30 Cap 020 Active Benzonatate 200 MG Oral CapsuleIndications:A cute laryngotracheitis Take 1 Capsule by mouth 3 times a day as needed for Cough. 30 Capsule 1 024 Active Additional Information Patient not taking.Reported on 05/06/2024 Zepbound 5 MG/0.5ML Subcutaneous Solution Auto-injector (Tirzepatide-Weight Management)Indicatio ns:Obesity, Class II, BMI 35-39.9, isolated (see actual BMI),HTN, goal below 140/90,Abnormal weight gain Inject 5 mg under the skin once a week. 6 mL 025 Active Atenolol 100 MG Oral Tablet (Tenormin) TAKE 1/2 TABLET BY MOUTH TWICE DAILY 90 Tablet 1 025 Active Atenolol 100 MG Oral Tablet (Tenormin) TAKE 1/2 TABLET BY MOUTH TWICE DAILY 90 Tablet 024 2024 Discontinued documented as of this encounter (statuses as of 05/14/2024) Active Problems Problem Noted Date Diagnosed Date [...] as of this encounter (statuses as of 05/14/2024) Resolved Problems Problem Noted Date Diagnosed Date Resolved Date Asthma with severity to be determined 10/13/2009 12/17/2012 Overview (08/01/2015): Per Asthma Taxonomy ICD-10 update of inactive term ADVANCE DIRECTIVE INFORMATION 09/25/2004 02/24/2024 Overview (09/25/2004): No, Advance Directive brochure given to patient at prior appointment. Asthma, allergic 07/02/2001 10/13/2009 documented as of this encounter (statuses as of 05/14/2024) Immunizations Name Administration Dates Next Due Covid-19 [...] on file documented as of this encounter Miscellaneous Notes * Telephone Encounter - Radha Andrea RPh - 05/14/2024 5:53 PM ESTSigned Prescriptions: Disp Refills Atenolol 100 MG Oral Tablet (Tenormin) 90 Tab*1 Sig: TAKE 1/2 TABLET BY MOUTH TWICE DAILYAuthorizing Provider: KEYSHA WINTERS III User: RADHA ANDREA- documented in this encounter Plan of Treatment Upcoming Encounters Date Type Department Care Team (Late st Contact Info) Description 05/05/2025 9:20 AM EST Office Visit Family Practice [facility] [address] [place] [address] Keysha Winters III, MD [address], [place] [address] Health Maintenance Due Date Last Done Comments Hepatitis B Vaccine (1 of 3 - 19+ 3-dose series) 1987 Colonoscopy 2013 Sigmoidoscopy 2013 Pneumococcal Vaccine: 50+ Years (1 of 1 - PCV) 2018 Fecal Occult Blood Test 12/03/2019 12/02/2018 Depression Screening 06/04/2020 06/04/2019 COVID-19 Vaccine ( - season) 2023 08/01/2020 Mammogram 03/24/2025 03/24/2024, 02/22, [...] Not on filedocumented as of this encounter Care Teams Circuit Walker Relationship Specialty Start Date End Date Keysha Winters III, MD [address] [place] [address] PCP - General 06/03/1997 documented as of this encounter
--- OUTSIDE RECORDS SUMMARY | 2024-07-28 04:24 | External Medical Summary | Summary of Care ---
Author Name Unknown Organization [facility] Address [address] [facility] [place] [address] Phone [phone] Care Team Providers Care Patient Placement Coordinator Name Role Phone Alin CARPIO MD, Manoj Sosa Primary Care Provider [phone] Encounter Details Date Type Department Care Team (Late st Contact Info) Description 02/06/2024 Orders Only PATIENT PORTAL DO NOT DELETE THIS DEPT USED BY [place] [id number] Allergies No known active allergiesdocumented as of this encounter (statuses as of 02/06/2024) Medications Medication Sig Dispensed Refills Start Date End Date Status Levonorgestrel 20 MCG/24HR Intrauterine Intrauterine Device Inserted 04/29/2015 1 Each 0 04/29/2015 Active Cholecalciferol (VITAMIN D3) 25 MCG (1000 UT) CAPS Take 1 Capsule by mouth in the morning. 30 Cap 12/04/2019 Active Cyclobenzaprine HCl 10 MG Oral Tablet (Flexeril) Take 1 Tab by mouth at bedtime as needed for Muscle spasms. 10 Tab 01/19/2021 Active Zepbound 5 MG/0.5ML Subcutaneous Solution Auto-injector (Tirzepatide-Weight Management)Indication s:Obesity, Class II, BMI 35-39.9, isolated (see actual BMI),HTN, goal below 140/90,Abnormal weight gain Inject 5 mg under the skin once a week. 2 mL 2 01/29/2024 Active Atenolol 100 MG Oral Tablet (Tenormin) TAKE 1/2 TABLET BY MOUTH TWICE DAILY 90 Tablet 02/03/2024 Active documented as of this encounter (statuses as of 02/06/2024) Active Problems Problem Noted Date Diagnosed Date Allergic rhinitis 01/28/2007 Headache 11/09/2004 ADVANCE DIRECTIVE INFORMATION 09/25/2004 Overview: No, Advance Directive brochure given to patient at prior appointment. Esophageal reflux 07/02/2001 Palpitations 07/02/2001 Female genital symptoms 07/26/2000 Overview: ICD-10 update of inactive term Lipoma Overview: ICD-10 update of inactive term documented as of this encounter (statuses as of 02/06/2024) Resolved Problems Problem Noted Date Diagnosed Date Resolved Date Asthma with severity to be determined 10/13/2009 12/17/2012 Overview: Per Asthma Taxonomy ICD-10 update of inactive term Asthma, allergic 07/02/2001 10/13/2009 documented as of this encounter (statuses as of 02/06/2024) Immunizations Name Administration Dates Next Due Covid-19 [...] ex posures Alcohol Use Standard Drinks/Week Comments Yes 0 (1 standard drink = 0.6 oz pur e alcohol) occ PHQ-2 Answer Date Recorded PHQ-2 Score 0 [...] 01/17/2024 Does the household have a re lar source of income? (Household - for ages [...] ages 0-17 years) Not on file 01/17/2024 Sex and Gender Information Value Date Recorded Sex Assigned at Female 11/27/2018 1:00 PM EDT Gender Identity Female 11/27/2018 1:00 PM EDT Sexual Orientation Choose not to disclose 2018 1:00 PM EDT Job Start Date Occupation Industry Not on file Not on file Not on file documented as of this encounter Plan of Treatment Upcoming Encounters Date Type Department Care Team (Late st Contact Info) Description 03/24/2024 7:30 AM EST Imaging Radiology [facility] [address] [place] [id number] 04/28/2024 7:40 AM EST Office Visit Family Practice [facility] [address] [place] [address] Manoj Ogden III, MD 200 [facility] [place] [address] 05/06/2024 8:40 AM EST Office Visit Nutrition & Weight Management, [facility] [address] [place] [address] Eleanor Bowser PA-C [address] [place] [address] Health Maintenance Due Date Last Done Comments [...] filedocumented as of this encounter Care Teams Patient Placement Coordinator Relationship Specialty Start Date End Date Manoj Ogden III, MD [address] [place] [address] PCP - General 06/03/1997 documented as of this encounter
--- OUTSIDE RECORDS SUMMARY | 2024-07-28 04:24 | External Medical Summary | Summary of Care ---
Author Name Unknown Organization [facility] Address [address] [facility] [place] [address] Phone [phone] Care Team Providers Care Graduate Nurse Name Role Phone Alin CARPIO MD, Manoj Sosa Primary Care Provider [phone] Reason for Visit * Reason Onset Date Comments Medication Refill 06/18/2024 Encounter Details Date Type Department Care Team (Late st Contact Info) Description 06/18/2024 Refill Nutrition & Weight Management, [facility] [address] [place] [address] Eleanor Tellez PA-C [address] [place] [address] Obesity, Class II, BMI 35-39.9, isolated (see actual BMI); HTN, goal below 140/90; Abnormal weight gain Allergies No known active allergiesdocumented as of this encounter (statuses as of 06/19/2024) Medications Cholecalciferol (VITAMIN D3) 25 MCG (1000 UT) CAPS Take 1 Capsule by mouth in the morning. 30 Cap 12/04/19 20 Active Benzonatate 200 MG Oral CapsuleIndications:A cute laryngotracheitis Take 1 Capsule by mouth 3 times a day as needed for Cough. 30 Capsule 1 02/28/20 24 Active Additional Information Patient not taking.Reported on 05/06/2024 Atenolol 100 MG Oral Tablet (Tenormin) TAKE 1/2 TABLET BY MOUTH TWICE DAILY 90 Tablet 1 05/14/19 25 Active Zepbound 5 MG/0.5ML Subcutaneous Solution Auto-injector (Tirzepatide-Weight Management)Indicatio ns:Obesity, Class II, BMI 35-39.9, isolated (see actual BMI),HTN, goal below 140/90,Abnormal weight gain Inject 5 mg under the skin once a week. 6 mL 06/19/19 25 Active Zepbound 5 MG/0.5ML Subcutaneous Solution Auto-injector (Tirzepatide-Weight Management)Indicatio ns:Obesity, Class II, BMI 35-39.9, isolated (see actual BMI),HTN, goal below 140/90,Abnormal weight gain Inject 5 mg under the skin once a week. 6 mL 05/01/19 25 025 Disconti nued(Ref ill) documented as of this encounter (statuses as of 06/19/2024) Active Problems Problem Noted Date Diagnosed Date Allergic rhinitis 01/28/2007 Headache 11/09/2004 Esophageal reflux 07/02/2001 Palpitations 07/02/2001 Female genital symptoms 07/26/2000 Overview (01/21/2017): ICD-10 update of inactive term Lipoma Overview (01/21/2017): ICD-10 update of inactive term documented as of this encounter (statuses as of 06/19/2024) Resolved Problems Problem Noted Date Diagnosed Date Resolved Date Class 2 severe obesity due t o excess calories with serious comorbidity and body mass index (BMI) of 35.0 to 35.9 in adult 05/05/2024 Asthma with severity to be determined 10/13/2009 12/17/2012 Overview (08/01/2015): Per Asthma Taxonomy ICD-10 update of inactive term ADVANCE DIRECTIVE INFORMATION 09/25/2004 02/24/2024 Overview (09/25/2004): No, Advance Directive brochure given to patient at prior appointment. Asthma, allergic 07/02/2001 10/13/2009 documented as of this encounter (statuses as of 06/19/2024) Immunizations Name Administration Dates Next Due Covid-19 [...] No 01/17/2024 Does the household have a [facility] source of income? (Household - for ages [...] ages 0-17 years) Not on file 01/17/2024 Food Insecurity Answer Date Recorded Within the past 12 months, y ou worried that your food would run out before you got the money to buy more. Never true 01/17/20 24 Within the past 12 months, t he food you bought just didn't last and you didn't have money to get more. Never true 01/17/2024 Do you need food for this week? No 01/17/2024 Comments No Sex and Gender Information [...] encounter Miscellaneous Notes * Telephone Encounter - Eleanor Tellez PA-C - 06/19/2024 11:21 AM EST Signed Prescriptions: Disp Refills Zepbound 5 MG/0.5ML Subcutaneous Solution *6 mL 0 Sig: Inject 5 mg under the skin once a week. Authorizing Provider: ELEANOR TELLEZ * Telephone Encounter - Fawn Caldwell RN - 06/19/2024 9:01 AM ESTPending Prescriptions: Disp Refills Zepbound 5 MG/0.5ML Subcutaneous Solution *6 mL 0 Sig: Inject 5mg under the skin once a week. documented in this encounter Plan of Treatment Upcoming Encounters Date Type Department Care Team (Late st Contact Info) Description 05/05/2025 9:20 AM EST Office Visit Family Practice [facility] [address] [place] [address] Manoj Ogden III, MD [address] [place] [address] Health Maintenance Due Date Last Done Comments Hepatitis B Vaccine (1 of 3 - 19+ 3-dose series) 1987 Colonoscopy 2013 Sigmoidoscopy 2013 Pneumococcal Vaccine: 50+ Years (1 of 1 - PCV) 2018 Fecal Occult Blood Test 12/03/2019 12/02/2018 Depression Screening 06/04/2020 06/04/2019 COVID-19 Vaccine (2 - 2023- season) 2023 08/01/2020 Mammogram 03/24/2025 03/24/2024, 02/22, 02/15/2022, Additional history exists Cologuard 05/29/2026 05/29/2023, 04/23, 05/14/2023, Additional history exists Colorectal Cancer Screening 05/29/2026 Pap Smear 01/22/2027 01/23/2024, 12/21, 10/16/2013, Additional history exists Diabetes Screening 05/19/2027 05/19/2024, 0 07/18/2023, 04/29/2023, Additional history exists Lipid Panel 04/29/2028 04/29/2023, [...] on patient's age to complete this topic Meningitis B Vaccine (Bexsero/Trumemba) Aged Out No longer eligible based on patient's age to complete this topic documented as of this encounter Medical Devices Not on filedocumented as of this encounter Visit Diagnoses Diagnosis Obesity, Class II, BMI 35-39.9, isolated (see actual BMI) Morbid obesity HTN, goal below 140/90 Unspecified essential hypertension Abnormal weight gain documented in this encounter Care Teams Graduate Nurse Relationship Specialty Start Date End Date Manoj Ogden III, MD [address] [place] [address] PCP - General 06/03/1997 documented as of this encounter
--- OUTSIDE RECORDS SUMMARY | 2024-07-28 04:24 | External Medical Summary | Summary of Care ---
Author Name Unknown Organization [facility] Address [address] [address] Phone [phone] Care Team Providers Care Special Tester Name Role Phone Alin CARPIO MD, Manoj Sosa Primary Care Provider [phone] Reason for Visit * Reason Comments Re-Check Pt here for follow u p; states she feels wonderful; has had a decrease in joint pain; thyroid issues have resolved; has had improved mood and decreased anxiety and depression; very happy with her progress Encounter Details Date Type Department Care Team (Late st Contact Info) Description 05/06/2024 8:40 AM EST Office Visit Nutrition & Weight Management, [facility] [address] [place] [address] Eleanor Bowser PA-C [address] [place] [address] Abnormal weight gain*; Graves disease Allergies No known active allergiesdocumented as of this encounter (statuses as of 05/06/2024) Medications Cholecalciferol (VITAMIN D3) 25 MCG (1000 [...] as of this encounter (statuses as of 05/06/2024) Active Problems Problem Noted Date Diagnosed Date [...] as of this encounter (statuses as of 05/06/2024) Resolved Problems Problem Noted Date Diagnosed Date Resolved Date Asthma with severity to be determined 10/13/2009 12/17/2012 Overview (08/01/2015): Per Asthma Taxonomy ICD-10 update of inactive term ADVANCE DIRECTIVE INFORMATION 09/25/2004 02/24/2024 Overview (09/25/2004): No, Advance Directive brochure given to patient at prior appointment. Asthma, allergic 07/02/2001 10/13/2009 documented as of this encounter (statuses as of 05/06/2024) Immunizations Name Administration Dates Next Due Covid-19 [...] Sign Reading Time Taken Comments Blood Pressure 112/62 05/06/2024 8:46 AM EST Pulse 86 05/06/2024 8:46 AM EST Temperature 36.6 °C (97.9 °F) 05/06/2024 8:46 AM ES T Respiratory Rate 18 05/06/2024 8:46 AM EST Oxygen Saturation - - Inhaled Oxygen Concentration - - Weight 73.6 kg (162 lb 3.2 oz) 05/06/2024 8:46 A M EST Height - - Body Mass Index 29.66 05/05/2024 9:32 AM EST documented in this encounter Progress Notes * Eleanor Bowser PA-C - 05/06/2024 8:50 AM EST [facility] Referring Physician: Manoj Ogden III, MD Nursing Notes: Fawn Caldwell RN 05/06/24 0849 Signed Chief Complaint Patient presents with Re-Check Pt here for follow up; states she feels wonderful; has had a decrease in joint pain; thyroid issueshave resolved; has had improved mood and decreased anxiety and depression; very happy with her progress Coral Greenberg is a 53 year old patient who presents to the [facility] for further recommendations. - Initial clinic visit 05/06/2023 Weight 192 lbs Height 62" Body mass index is 29.66 kg/m². Weight today 162 pounds Weight has decreased -30 pounds since initial visit Weight has -18 lbs since last visit 10/10/23 Wt Readings from Last 6 Encounters: 05/06/24 73.6 kg (162 lb 3.2 oz) 05/05/24 73.9 kg (163 lb) 02/28/24 75 kg (165 lb 4.8 oz) 01/23/24 77.1 kg (170 lb) 10/10/23 82 kg (180 lb 12.8 oz) 05/06/23 87.2 kg (192 lb 4.8 oz) HPI: 05/06/24 -on Zepbound 5mg Valid auth start date: 12/06/23 Valid auth end date: 12/05/24 -tolerating well 10/10/2023 -in clinic follow up zepbound 2.5mg weekly -no Gi side effects -noticing hair loss but is getting 80g-100g protein daily -started taking biotin and lysine Visit 05/06/23 The patient suffers from Class II obesity Patient is interested in the following treatment options for obesity: possible medication use. Previous Weight Management Interventions: The patient has tried weight loss in the past without significant half-way success. Previous interventions: Self-directed. Had hyperthyroidism 2018 and gained weight but can't get rid of that 40 pounds Weight watchers Tried eating according to her hormones The patient denies any past pharmacotherapy for weight loss . Current Diet: tracking calories/protein - 119g protein yesterday, getting minimum 80g daily Describes typical diet history/24 hr recall Breakfast: pea protein shake powder with Atkins shake (>60g) and yogurt with berries/avocado toast Snacks: nuts OR chomps OR cheese stick OR apple Lunch: salad with grilled chicken OR leftovers from dinner OR Lean Cuisine Snacks: protein bar Dinner: grilled protein, veggies Snacks: skips Drinks-- water, hydration pack Restaurant meals: 1-2x per month Activity: ADL, morning routine - stretching, 5lbs weights, 5K steps per day (20min exercise) Past Medical History Glaucoma No Hypertension: Yes, on medications CAD: No Congestive heart failure No Dyslipidemia: No Lipid Panel Results: Results for orders placed or performed in visit on 12/14/03 LIPID PANEL Result Value Ref Range HOURS FASTING 12 hours Triglycerides 141 40 - 195 mg/dL Cholesterol 197 145 - 200 mg/dL HDL Cholesterol 50 40 - 59 mg/dL Cholesterol-HDL Ratio 3.9 LDL Cholesterol 119 0 - 130 mg/dL Results for orders placed or performed in visit on 05/16/18 LIPID PANEL WITH DIRECT LDL IF TG ABOVE 150 MG/DL Result Value Ref Range HOURS FASTING >8 HOURS hours Triglycerides 79 <200 mg/dL Cholesterol 156 <200 mg/dL HDL Cholesterol 57 >39 mg/dL Cholesterol-HDL Ratio 2.7 LDL Cholesterol 83 0 - 129 mg/dL LDL Cholesterol (Direct Measure) NOT APPLICABLE 0 - 129 mg/dL DVT/PE, clotting disorder: No Stroke: No Seizures: No Sleep Apnea: No Asthma: Yes COPD: No Patient denies personal or family history of medullary thyroid carcinoma. Patient denies personal or family history of multiple endocrine neoplasia syndrome type II Patient denies personal history of pancreatitis Fatty Liver: no Diabetes: No Hemoglobin A1C last 3 results: Lab Results Component Value Date/Time HEMOGLOBIN, [id number] LAB 5.4 07/18/2023 12:00 AM HEMOGLOBIN, [id number] LAB 5.4 04/29/2023 12:00 AM HEMOGLOBIN, [id number] LAB 5.2 10/10/2021 12:00 AM Insulin Resistance: Yes PCOS: No GERD: Yes: Requiring medications: Yes History of nephrolithiasis: No. Osteoarthritis: Yes Anxiety/Depression: Yes Patient Active Problem List Diagnosis Female genital symptoms Esophageal reflux Palpitations Lipoma Headache Allergic rhinitis Class 2 severe obesity due to excess calories with serious comorbidity and body mass index (BMI) of35.0 to 35.9 in adult (HCC) Past Surgical History: Procedure Laterality Date COLPOSCOPY OF CERVIX W/BIOPSY LAPAROSCOPY DIAGNOSTIC 7.29.05 Ruptured L hemorhagic ovarian cyst - Andreas MRI BRAIN WITH CONTRAST 2.14.02 normal mri brain Review of patient's allergies indicates: No Known Allergies Current Outpatient Medications Medication Sig Dispense Refill Atenolol 100 MG Oral Tablet (Tenormin) TAKE 1/2 TABLET BY MOUTH TWICE DAILY 90 Tablet 0 Zepbound 5 MG/0.5ML Subcutaneous Solution Auto-injector (Tirzepatide-Weight Management) Inject 5 mgunder the skin once a week. 6 mL 0 Cholecalciferol (VITAMIN D3) 25 MCG (1000 UT) CAPS Take 1 Capsule by mouth in the morning. 30 Cap 0 Benzonatate 200 MG Oral Capsule Take 1 Capsule by mouth 3 times a day as needed for Cough. (Patientnot taking: Reported on 05/06/2024) 30 Capsule 1 No current facility-administered medications for this visit. Family History Problem Relation Name Age of Onset Hypertension Mother Hyperlipidemia Mother Allergies Father hayfever Other (Other) Father vertigo Atrial fibrillation Father Asthma Brother Cervical Cancer Grandmother (Maternal) Cancer Grandfather (Maternal) Lung Cancer Stroke Grandmother (Paternal) @89 Heart Disorder Grandfather (Paternal) chf Alcohol and Other Disorders Associated Grandfather (Paternal) Heart Disorder Aunt (Unspecified) mi No Past Hx None no breast/ovarian/colon cancer Social History: Alcohol: Moderate Tobacco Use: No Drug Use: No Marital status: Occupation: works at [employer] Review of Systems: Review of Systems Gastrointestinal: Negative for constipation, diarrhea, nausea and vomiting. Psychiatric/Behavioral: Negative for dysphoric mood. The patient is not nervous/anxious. Menstrual Cycle: No Control: IUD Physical Examination: BP 112/62 | Pulse 86 | Temp 36.6 °C (97.9 °F) | Resp 18 | Wt 73.6 kg (162 lb 3.2 oz) | LMP 04/26/2015 (Exact Date) | BMI 29.66 kg/m² | BSA 1.79 m² Physical Exam Vitals and nursing note reviewed. Constitutional: Appearance: Normal appearance. HENT: Head: Normocephalic and atraumatic. Cardiovascular: Normal rate. Pulmonary: Effort: Pulmonary effort is normal. No respiratory distress. Neurological: Mental Status: Alert and oriented to person, place, and time. Psychiatric: Mood and Affect: Mood normal. Assessment and Recommendation: Abnormal weight gain Body mass index is 29.66 kg/m². Class II obesity. Discussed weight management options and would like to proceed with medication weight management. Barriers are consistency. Motivators are feeling better, avoiding/reducing comorbid conditions. Patient goals were discussed in detail at visit. GOALS -keep up the great work! Getting 80g-100g protein daily, not skipping meals -losing about 1 pound per week (already 6% body weight loss!) -zepbound can increase to 5mg if she would like but for now continue 2.5mg -- she will let me know if she wants to increase. PLAN: Goals as above Anti obesity Medication Indications: BMI >30 or BMI >27 with obesity related comorbidity & no apparent contraindications Goal is to lose ~5% wt loss in 3 mo Wegovy/Saxenda/Zepbound: (started 07/14/23) continue zepbound 5mg weekly Ozempic, Victoza, Trulicity, Mounjaro: no coverage without type II diabetes diagnosis Wellbutrin: Naltrexone: Topamax: Phentermine: avoid-- hyperthyroid, palpitations on metoprolol Xenical: Metformin: could consider -tirzepitide consent signed 05/06/24 Abnormal weight gain HTN, goal below 140/90 BP 112/62 | Pulse 86 | Temp 36.6 °C (97.9 °F) | Resp 18 | Wt 73.6 kg (162 lb 3.2 oz) | LMP 04/26/2015 (Exact Date) | BMI 29.66 kg/m² | BSA 1.79 m² Continue atenolol Palpitations Avoid phentermine Graves disease Currently off medication Follows with endocrinology She is getting adequate protein and is taking biotin and lysine I spent a total of 25 minutes on the date of service in preparation, delivery, and documentation ofthe care provided to Coral Greenberg excluding any time spent in the performance of separately billedservices. More than 50% of my time spent with patient providing counseling about the benefits of weight loss, about the patient's nutritional status, detailed explanations about calorie count, types o f nutrients to choose, and composition of the meals. Reviewed and discussed weight, weight trends and pertinent labs and test results. Motivational interview provided in order to prepare the patient to achieve future goals. The patient agreed to try all the plan discussed and return in two months. Patient was instructed to message or call in the meantime with any further concerns or questions. Eleanor COLVIN, MPH [facility] Nutrition and Weight Management [facility] ([facility]) documented in this encounter Nursing Notes * Fawn Caldwell RN - 05/06/2024 8:49 AM EST Chief Complaint Patient presents with Re-Check Pt here for follow up; states she feels wonderful; has had a decrease in joint pain; thyroid issueshave resolved; has had improved mood and decreased anxiety and depression; very happy with her progress documented in this encounter Plan of Treatment Upcoming Encounters Date Type Department Care Team (Late st Contact Info) Description 05/05/2025 9:20 AM EST Office Visit Family Practice [facility] [address] [facility] [place] [address] Manoj Ogden III, MD [address] [facility] [place] [address] Health Maintenance Due Date Last Done Comments [...] as of this encounter Visit Diagnoses Diagnosis Abnormal weight gain- Primary Graves disease 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
--- OUTSIDE RECORDS SUMMARY | 2024-07-28 04:24 | External Medical Summary | Summary of Care ---
Author Name Unknown Organization [facility] Address [address] [place] [facility] [place] [address] Phone [phone] Care Team Providers Care Sales Performance Manager Name Role Phone Alin CARPIO MD, Manoj Sosa Primary Care Provider [phone] Reason for Visit * Reason Onset Date Comments Medication Refill 02/05/2024 Encounter Details Date Type Department Care Team (Late st Contact Info) Description 02/05/2024 Refill Family Practice [facility] [address] [facility] [place] [address] Manoj Ogden III, MD [address] [place] [address] Allergies No known active allergiesdocumented as of this encounter (statuses as of 04/02/2024) Medications Cholecalciferol (VITAMIN D3) 25 MCG (1000 UT) CAPS Take 1 Capsule by mouth in the morning. 30 Cap 0 Active Zepbound 5 MG/0.5ML Subcutaneous Solution Auto-injector (Suri-Shashi ght Management)Indic ations:Obesity, Class II, BMI 35-39.9, isolated (see actual BMI),HTN, goal below 140/90,Abnormal weight gain Inject 5 mg under the skin once a week. 2 mL 2 4 Active Atenolol 100 MG Oral Tablet (Tenormin) TAKE 1/2 TABLET BY MOUTH TWICE DAILY 90 Tablet 4 Active Levonorgestrel 20 MCG/24HR Intrauterine Intrauterine Device Inserted 04/29/2015 1 Each 0 6 02/28/20 24 Discontinu ed(End of Procedure) Cyclobenzaprine HCl 10 MG Oral Tablet (Flexeril) Take 1 Tab by mouth at bedtime as needed for Muscle spasms. 10 Tab 1 02/28/20 24 Discontinu ed(Medicat ion List Clean Up) documented as of this encounter (statuses as of 04/02/2024) Active Problems Problem Noted Date Diagnosed Date Allergic rhinitis 01/28/2007 Headache 11/09/2004 Esophageal reflux 07/02/2001 Palpitations 07/02/2001 Female genital symptoms 07/26/2000 Overview (01/21/2017): ICD-10 update of inactive term Lipoma Overview (01/21/2017): ICD-10 update of inactive term documented as of this encounter (statuses as of 04/02/2024) Resolved Problems Problem Noted Date Diagnosed Date Resolved Date Asthma with severity to be determined 10/13/2009 12/17/2012 Overview (08/01/2015): Per Asthma Taxonomy ICD-10 update of inactive term ADVANCE DIRECTIVE INFORMATION 09/25/2004 02/24/2024 Overview (09/25/2004): No, Advance Directive brochure given to patient at prior appointment. Asthma, allergic 07/02/2001 10/13/2009 documented as of this encounter (statuses as of 04/02/2024) Immunizations Name Administration Dates Next Due Covid-19 [...] encounter Miscellaneous Notes * Telephone Encounter - Tabitha Pinedo CMA - 02/05/2024 2:15 PM EDTRefused Prescriptions: Disp Refills Atenolol 100 MG Oral Tablet (Tenormin) 90 Tab*0 Sig: TAKE 1/2 TABLET BY MOUTH TWICE DAILY Refused By: TABITHA PINEDO Reason for Refusal: Duplicate Request * Telephone Encounter - Connie Rodgers OSA - 02/05/2024 2:11 PM EDT Did you pend patient's preferred pharmacy and medication before forwarding?yes Pharmacy: [facility] [address] [address] Pending Prescriptions: Disp Refills Atenolol 100 MG Oral Tablet (Tenormin) 90 Tab*0 Sig: TAKE 1/2 TABLET BY MOUTH TWICE DAILY Last Visit: 04/25/2023 (in office), 06/07/2021 (telemedicine) Next Visit: 04/28/2024 If no future appointments scheduled, and last appointment is greater than a year ago, please schedule patient for a follow-up appointment Last date the medication was ordered: 02/03/2024 Is this request for a controlled substance?No Urine Drug Screen:No results found for this or any previous visit. Patient Phone Numbers Labs: Lab Results Component Value Date/Time CREAT 0.68 10/10/2021 12:00 AM CREAT 0.6 11/27/2018 01:50 PM POTASSIUM 4.2 10/10/2021 12:00 AM POTASSIUM 4.5 11/27/2018 01:50 PM TSH 0.47 07/18/2023 12:00 AM TSH <0.01 (L) 08/13/2018 07:25 AM LDL 83 05/16/2018 10:13 AM LDL NOT APPLICABLE 05/16/2018 10:13 AM LDLCALC 120 (H) 04/29/2023 12:00 AM ALT 22 11/27/2018 01:50 PM HGBA1C 5.4 07/18/2023 12:00 AM documented in this encounter Plan of Treatment Upcoming Encounters Date Type Department Care Team (Late st Contact Info) Description 04/28/2024 7:40 AM EST Office Visit Family Practice [facility] [address] [facility] [place] [address] Manoj Ogden III, MD [address] [facility] [place] [address] 05/06/2024 8:40 AM EST Office Visit Nutrition & Weight Management, [facility] [address] [place] [address] Eleanor Bowser PA-C [address] [place] [address] Health Maintenance Due Date Last Done Comments Hepatitis B Vaccine (1 of 3 - 19+ 3-dose series) 1987 Colonoscopy 2013 Sigmoidoscopy 2013 Fecal Occult Blood Test 12/03/2019 12/02/2018 Depression Screening 06/04/2020 06/04/2019 COVID-19 Vaccine ( season) 2023 08/01/2020 Influenza Vaccine (FLU shot) (#1) 2023 01/14/2023, 05/01/2022, 02/28/2021, Additional history exists Mammogram 03/24/2025 03/24/2024, 02/22, 02/15/2022, Additional history [...] filedocumented as of this encounter Care Teams Sales Performance Manager Relationship Specialty Start Date End Date Manoj Ogden III, MD [address] [place] [address] PCP - General 06/03/1997 documented as of this encounter
--- OUTSIDE RECORDS SUMMARY | 2024-07-28 04:25 | External Medical Summary | Summary of Care ---
Author Name Unknown Organization [facility] Address [address] [place] [facility] [place] [address] Phone [phone] Care Team Providers Care Milk Pickup Driver Name Role Phone Alin CARPIO MD, Keysha Sosa Primary Care Provider [phone] Reason for Visit * Reason Comments eRx-Medication Refill Encounter Details Date Type Department Care Team (Late st Contact Info) Description 02/01/2024 Refill Family Practice [facility] [address] [place] [address] Keysha Winters III, MD [address] [place] [address] Encounter for long-term (current) use of medications* Allergies No known active allergiesdocumented as of this encounter (statuses as of 02/05/2024) Medications Medication Sig Dispensed Refills Start Date [...] Active Zepbound 5 MG/0.5ML Subcutaneous Solution Auto-injector (Tirzepatide-Weigh t Management)Indicat ions:Obesity, Class II, BMI 35-39.9, isolated (see actual BMI),HTN, goal below 140/90,Abnormal weight gain Inject 5 mg under the skin once a week. 2 mL 2 01/29/2024 Active Atenolol 100 MG Oral Tablet (Tenormin) TAKE 1/2 TABLET BY MOUTH TWICE DAILY 90 Tablet 02/03/2024 Active Atenolol 100 MG Oral Tablet (Tenormin) TAKE 1/2 TABLET BY MOUTH TWICE DAILY 90 Tablet 1 08/12/2023 4 Discontinued documented as of this encounter (statuses as of 02/05/2024) Active Problems Problem Noted Date Diagnosed Date Allergic rhinitis 01/28/2007 Headache 11/09/2004 ADVANCE DIRECTIVE INFORMATION 09/25/2004 Overview: No, Advance Directive brochure given to patient at prior appointment. Esophageal reflux 07/02/2001 Palpitations 07/02/2001 Female genital symptoms 07/26/2000 Overview: ICD-10 update of inactive term Lipoma Overview: ICD-10 update of inactive term documented as of this encounter (statuses as of 02/05/2024) Resolved Problems Problem Noted Date Diagnosed Date Resolved Date Asthma with severity to be determined 10/13/2009 12/17/2012 Overview: Per Asthma Taxonomy ICD-10 update of inactive term Asthma, allergic 07/02/2001 10/13/2009 documented as of this encounter (statuses as of 02/05/2024) Immunizations Name Administration Dates Next Due Covid-19 Ad26, Single Dose (Navdeep/J&J) 08/01/2020 Seasonal Influenza Vac., MDV , IM, 0.5 mL (Fluzone) 03/13/2013,01/23/2012,02/18/2007 Seasonal Influenza, PF, 6 M & above, IM , (FluLaval or Fluzone) 01/14/2023,05/01/2022,02/28/2021,2019,05/16/2018 TDAP (age 10 and older)(Boostrix) 04/17/2022,10/ 06/2011 Zoster Vaccine Recombinant (Shingrix) 12/04/2019 ,06/04/2019 documented [...] encounter Miscellaneous Notes * Telephone Encounter - Edilberto Olivia - 02/05/2024 9:18 PM EDT Received message from [facility] regarding patient needing labs. Patient was notified. Successfully contacted patient and provided [facility] message. * Telephone Encounter - Tay Henry [facility] - 02/03/2024 3:38 PM EDTSigned Prescriptions: Disp Refills Atenolol 100 MG Oral Tablet (Tenormin) 90 Tab*0 Sig: TAKE 1/2 TABLET BY MOUTH TWICE DAILY Authorizing Provider: KEYSHA WINTERS III Ordering User: TAY HENRY * Telephone Encounter - Tay Henry [facility] - 02/03/2024 3:37 PM EDT Provided 90 days supply with 0 refill(s). Per refill protocol patient should have BMP on file within past year. Reviewed AMP report, Care Gaps/Health Maintenance, medications list, and for any routine labs typically ordered for this patient. Lab orders placed. Please contact patient to advise of labs ordered for blood draw. Fasting is not required. Advise toobtain labs before requesting the next refill. Thank you, Tay Henry, PharmD Clinical Pharmacist [facility]) 02/03/24 3:37 PM [phone] * Telephone Encounter - Interface, [facility] - 02/03/2024 1:33 PM EDT Pending Prescriptions: Disp Refills Atenolol 100 MG Oral Tablet [Pharmacy Med *90 Tab*0 Sig: TAKE 1/2 TABLET BY MOUTH TWICE DAILY documented in this encounter Plan of Treatment Upcoming Encounters Date Type Department Care Team (Late st Contact Info) Description 03/24/2024 7:30 AM EST Imaging Radiology [facility] [address] [facility] [address] [place] [place] [address] 04/28/2024 7:40 AM EST Office Visit Family Practice [facility] [address] [facility] [place] [address] Keysha Winters III, MD [address] [facility] [address] 05/06/2024 8:40 AM EST Office Visit Nutrition & Weight Management, [facility] [address] [place] [address] Eleanor Bowser PA-C [address] [place] [address] Scheduled Orders Name Type Priority Associated Diagnoses Orde r Schedule BASIC METABOLIC PANEL Lab Routine Encounter for long-term (current) use of medications Expected: 02/03/2024 (Approximate), Expires: 02/02/2025 Health Maintenance Due Date Last Done Comments [...] as of this encounter Visit Diagnoses Diagnosis Encounter for long-term (current) use of medications- Primary Encounter for long-term (current) use of other medications documented in this encounter Care Teams Milk Pickup Driver Relationship Specialty Start Date End Date Keysha Winters III, MD [address] [place] [address] PCP - General 06/03/1997 documented as of this encounter
[2024-07-28] MEDS: KETOROLAC TROMETHAMINE 15 MG/ML VIAL IV PRN (05:27)
[2024-07-28 07:30] LABS: Hematocrit (blood only) 34.2 % (37.0-47.0); Hemoglobin 11.7 g/dl (12.0-16.0); Mean Corpuscular Hemoglobin 31.6 pg (25.0-34.0); Mean Corpuscular Hgb Conc 34.2 g/dL (32.0-36.0); Mean Corpuscular Volume 92.4 fL (80.0-100.0); Mean Platelet Volume 10.4 fL (9.4-12.4); Platelet Count 259 K/uL (130-400); RDW Coefficient of Variation 12.5 % (11.5-14.5); RDW Standard Deviation 42.6 fL (36.4-46.3); White Blood Count 13.41 K/ul (4.8-10.8)
[2024-07-28 07:52] LABS: BUN Creatinine Ratio 28.6 (10-20); Calcium 9.1 mg/dl (8.6-10.3); Creatinine Clr Calc Pharmacy 90.1 ml/min; Potassium 4.1 mmol/L (3.5-5.1)
[2024-07-28] MEDS: ACETAMINOPHEN 325 MG TAB PO PRN (08:10)
[2024-07-28] MEDS: MAGNESIUM OXIDE 400 MG TAB PO SCH (08:10)
[2024-07-28] MEDS: ATENOLOL 25 MG TABLET PO SCH (08:10)
--- NOTE | 2024-07-28 08:50 | Surgery Consultation ---
Date of Consultation July 28, 2024 Assessment & Plan (1) Diverticulitis large intestine w/o perforation or abscess w/o bleeding: IV abx NPO excspt sips until pain improves no fevers small abscess does not need drainage History of Present Illness Attending Physician: Hector Welsh MD History of Present Illness This is a 54YO female who presented to the ED with LLQ abdominal pain, no fevers or chills. She denies bowel habit changes. No known diverticulum. Her first bout of pain. CT scan shows acute diverticulitis with possible abscess of 1.7 cm. Allergies Allergy/AdvReac Type Severity Reaction Status Date / Time No Known Allergies Allergy Unknown Verified 07/27/24 17:40 Home Medications Medication Instructions Recorded Confirmed Type Gut Hero Probiotic 1 cap PO DAILY 07/27/24 07/27/24 History Turmeric Powder 1 tbsp PO DAILY 07/27/24 07/27/24 History atenolol 100 mg tablet 50 mg PO BID 07/27/24 07/27/24 History cholecalciferol (vitamin D3) 25 25 mcg PO DAILY 07/27/24 07/27/24 History mcg (1,000 unit) capsule magnesium 200 mg tablet 200 mg PO DAILY 07/27/24 07/27/24 History multivitamin 1 tab PO DAILY 07/27/24 07/27/24 History omega 9-ppk-gbu-fish oil 1,000 mg 1 cap PO DAILY 07/27/24 07/27/24 History (120 mg-180 mg) capsule (Fish Oil) tirzepatide (weight loss) 5 mg/0.5 5 mg subcut WK 07/27/24 07/27/24 History mL subcutaneous pen injector (Zepbound) Patient History Social History Smoking Status: Never smoker Hx Alcohol Use: Yes Hx Substance Use: No Preferred Language: Guamanian Legal Job Titles Required: No Beliefs That Will Affect Care: None Current Living Situation: Spouse Feels Safe at Home: Yes Safety Concerns: Feels Safe At This Time Review of Systems Constitutional: no fever, no chills and no anorexia Eyes: no problem reported Ear, Nose, Mouth, Throat: no problem reported Respiratory: no cough and no dyspnea Cardiovascular: no chest pain Gastrointestinal: + abdominal pain; no nausea, no vomiting and no change in bowel habits Genitourinary: no dysuria Musculoskeletal: no back pain Integumentary: no problem reported Neurologic: no localized weakness and no generalized weakness Psychiatric: no behavioral changes Endocrine: no problem reported Hematologic / Lymphatic: no problem reported Physical Exam Constitutional: WD/WN, vitals as above Eyes: + anicteric sclerae ENMT: external ear and nose normal, oropharynx normal Neck: trachea midline Respiratory: normal respiratory effort, lungs clear to auscultation Cardiovascular: RRR, no murmur, no edema Gastrointestinal (Abdomen): Inspection/Auscultation: abdomen normal to inspection and normal bowel sounds; abdomen not distended Percussion/Palpation: + abdomen tender and abdomen soft; no guarding and abdomen not rigid Musculoskeletal: Head/Neck/Chest: normocephalic and head atraumatic Skin: no rashes, warm and dry Results & Data Vital Signs (Past 12 Hours) Vital Signs Temp Pulse Pulse Resp BP BP BP 07/28/24 07:17 37.0 C 98 H 16 109/76 07/27/24 22:56 37.3 C 86 107/70 07/27/24 22:30 37.3 C 86 107/70 07/27/24 21:12 85 14 97/66 L 07/27/24 20:57 104/70 Pulse Ox O2 Del Method 07/28/24 07:17 96 Room Air 07/27/24 22:56 97 Room Air 07/27/24 22:30 97 Room Air 07/27/24 21:12 96 07/27/24 20:57 95 Diagnostic Findings INDICATION: Left lower quadrant pain. COMPARISON: No relevant priors available. TECHNIQUE: Axial CT images of the abdomen and pelvis were obtained following IV contrast administration. Coronal and sagittal reformations were reviewed. FINDINGS: Visualized lung bases appear unremarkable. The liver, gallbladder, spleen, pancreas and adrenal glands appear unremarkable. No hydronephrosis. Sigmoid colonic wall thickening with adjacent inflammatory fat stranding and diverticula present. Inflamed diverticulum versus contained perforation/fluid collection adjacent to the sigmoid colon measuring 1.7 x 1.6 cm. Otherwise no free air identified. No evidence of bowel obstruction or appendicitis. Moderate amount of retained colonic stool. The urinary bladder appears unremarkable. No acute osseous abnormality evident. IMPRESSION: 1. Sigmoid diverticulitis. Inflamed diverticulum versus contained perforation/fluid collection adjacent to the sigmoid colon measuring 1.7 x 1.6 cm.
[2024-07-28] MEDS ORDERED: ATENOLOL 50 MG TABLET PO SCH (09:00)
--- NOTE | 2024-07-28 16:46 | Hospitalist Progress Note ---
Date of Service July 28, 2024 Assessment & Plan (1) Diverticulitis of sigmoid colon: Plan: Patient is a 54 year old female presenting to the emergency department today with complaint of abdominal pain described as "burning that radiates to my back" x 3 days. Past medical history of Hypertension, Grave's disease (currently in remission), s/p ovarian cystectomy, and history of knee surgery. CT of the abdomen and pelvis showed sigmoid diverticulitis. Inflamed diverticulum versus contained perforation/fluid collection adjacent to the sigmoid colon measuring 1.7 x 1.6 cm. No evidence of abscess * Admitted to [place] * NPO with Iv fluid replacement * Continue Zosyn Q8 hours * Surgical consult ordered- appreciate input and recommendation * Toradol as needed for pain Remains stable and denies any significant symptoms. Abdominal pain has improved and does not have any nausea or vomiting White count has been improving and remains afebrile Has been getting oral sips and chips If remains stable will start clears from tomorrow (2) HTN (hypertension): Plan: Continue home regimen with Atenolol Plan DVT Ppx: SCDs Code status: Full PCP: Dr. Manoj Ogden Dispo: Admit to Med/Surg Admission and Anticipated Discharge Date Admission Date: July 27, 2024 Subjective 07/28/2024 The patient was seen and examined in medical floor She has been feeling much better and has less abdominal pain without any nausea and/or vomiting again Denies any other significant symptoms Review of Systems Review of Systems: All systems reviewed and unremarkable except as noted below Physical Exam Physical Exam: Sitting at the edge of the bed without any acute distress Constitutional: well developed, well nourished and + ill appearing Eyes: PERRL, conjunctivae normal, anicteric sclerae ENMT: external ear and nose normal, oropharynx normal Neck: trachea midline, no thyromegaly Respiratory: no respiratory distress Auscultation: lungs clear to auscultation bilaterally Cardiovascular: Rate/Rhythm: regular rate and regular rhythm; not tachycardic Heart Sounds: normal S1 and normal S2; no murmur Extremities: no edema Gastrointestinal (Abdomen): Inspection/Auscultation: normal bowel sounds; abdomen not distended Percussion/Palpation: + abdomen tender ( mildly tender in the left lower quadrant) and abdomen soft Musculoskeletal: no acute arthritis involving any of the joint Neurologic: normal touch/pain/proprioception and moves all extremities; no focal motor deficits Psychiatric: A+Ox3, euthymic affect Lymphatic: no cervical or axillary lymphadenopathy Results & Data Results & Data Vital Signs (Past 12 Hours) Vital Signs Temp Pulse Resp BP BP Pulse Ox O2 Del Method 07/28/24 15:48 36.7 C 84 16 116/81 95 Room Air 07/28/24 07:17 37.0 C 98 H 16 109/76 96 Room Air Laboratory Results Short CBC 07/27/24 07/28/24 Range/Units 16:11 06:51 WBC 16.50 H 13.41 H (4.8-10.8) K/ul Hgb 13.5 11.7 L (12.0-16.0) g/dl Hct 41.0 34.2 L (37.0-47.0) % Plt Count 313 259 (130-400) K/uL BMP 07/27/24 07/28/24 16:11 06:51 Sodium 139 139 Potassium 3.4 L 4.1 D Chloride 103 108 H Carbon Dioxide 29 26 BUN 16 18 Creatinine 0.57 L 0.63 Glucose 81 94 Calcium 10.0 9.1 Liver Function 07/27/24 Range/Units 16:11 Total Bilirubin 0.5 (0.2-1.0) mg/dl AST 18 (13-39) U/L ALT 17 (7-52) U/L Alkaline Phosphatase 60 (34-104) U/L Albumin 4.5 (3.4-5.0) gm/dl Urine 07/27/24 Range/Units 16:07 Urine Color Yellow Urine Appearance Clear (Clear) Urine pH 7.0 (4.5-7.5) Ur Specific [place] 1.008 (1.000-1.030) Urine Protein Negative (Negative) Urine Glucose (UA) Negative (Negative) Medications Administered Current Inpatient Medications Acetaminophen (Acetaminophen 325 Mg Tab) 650 mg PO Q4H PRN PRN Reason: pain/fever Stop: 08/26/24 22:28 Last Admin: 07/28/24 08:10 Dose: 650 mg Atenolol (Atenolol 25 Mg Tablet) 25 mg PO BID [facility] Stop: 08/27/24 08:59 Last Admin: 07/28/24 08:10 Dose: 25 mg Sodium Chloride (Nss) 1,000 mls @ 80 mls/hr IV .[id number] [facility] Stop: 07/28/24 22:28 Last Admin: 07/28/24 13:57 Dose: 80 mls/hr Piperacillin Sod/Tazobactam Sod (Zosyn) 4.5 gm in 100 mls @ 25 mls/hr IV Q8H [facility]; Protocol Stop: 08/07/24 00:00 Last Admin: 07/28/24 16:15 Dose: 25 mls/hr Ketorolac Tromethamine (Ketorolac Tromethamine 15 Mg/Ml Vial) 15 mg IV Q6H PRN PRN Reason: Pain Stop: 08/01/24 22:28 Last Admin: 07/28/24 12:09 Dose: 15 mg Magnesium Oxide (Magnesium Oxide 400 Mg Tab) 400 mg PO DAILY [facility] Stop: 08/27/24 08:59 Last Admin: 07/28/24 08:10 Dose: 400 mg Ondansetron HCl (Ondansetron Inj 2 Mg/Ml 2 Ml Vial) 4 mg IV Q6H PRN PRN Reason: Nausea Stop: 08/26/24 22:28
--- NOTE | 2024-07-28 21:51 | Electrocardiogram Report ---
Test Reason : Blood Pressure : */* mmHG Vent. Rate : 85 BPM Atrial Rate : 85 BPM P-R Int : 150 ms QRS Dur : 100 ms QT Int : 394 ms P-R-T Axes : 41 9 33 degrees QTcB Int : 468 ms Poor data quality, interpretation may be adversely affected Normal sinus rhythm Possible Left atrial enlargement Incomplete right bundle branch block Borderline ECG When compared with ECG of 04-Jan-2014 12:11, No significant change Confirmed by Rk Williamson ([id number]) on 07/28/2024 9:50:44 PM Referred By: REFERRED SELF Confirmed By: Rk Williamson
[2024-07-29 06:51] LABS: Basophils # (auto) 0.04 K/uL (0.00-0.20); Basophils % (auto) 0.4 %; Eosinophils # (auto) 0.13 K/uL (0.00-0.50); Eosinophils % (auto) 1.2 %; Hemoglobin 11.4 g/dl (12.0-16.0); Immature Granulocytes # (auto) 0.05 K/uL (0.01-0.20); Immature Granulocytes % (auto) 0.5 %; Lymphocytes # (auto) 2.67 K/uL (1.20-3.40); Lymphocytes % (auto) 24.1 %; Mean Corpuscular Hemoglobin 31.4 pg (25.0-34.0); Mean Corpuscular Hgb Conc 33.5 g/dL (32.0-36.0); Mean Corpuscular Volume 93.7 fL (80.0-100.0); Mean Platelet Volume 10.8 fL (9.4-12.4); Monocytes # (auto) 0.81 K/uL (0.11-0.59); Monocytes % (auto) 7.3 %; Neutrophils # (auto) 7.37 K/uL (1.40-6.50); Neutrophils % (auto) 66.5 %; Platelet Count 276 K/uL (130-400); RDW Coefficient of Variation 12.1 % (11.5-14.5); Red Blood Count 3.63 M/uL (4.20-5.40); White Blood Count 11.07 K/ul (4.8-10.8)
[2024-07-29 07:15] LABS: Calcium 9.2 mg/dl (8.6-10.3); Creatinine Clr Calc Pharmacy 109.2 ml/min; Magnesium 2.1 mg/dl (1.7-2.4); Potassium 3.9 mmol/L (3.5-5.1)
--- NOTE | 2024-07-29 09:45 | Surgery Progress Note ---
Date of Service July 29, 2024 Assessment & Plan (1) Diverticulitis large intestine w/o perforation or abscess w/o bleeding: Plan: avss minimal abdominal pain today 05/01 +flatus Plan: Can advance to clears and then fulls later today if does well Possibly home tomorrow with 14 day total course of IV and oral abx will need colonoscopy in 6-8 weeks low fiber diet on discharge for a few weeks may need bowel regimen due to constipation and stool burden on CT Discussed with Dr. Rodriguez who agrees with above. Admission and Anticipated Discharge Date Admission Date: July 27, 2024 Subjective feeling much better pain about 05/01 no nausea, vomiting, bloating urinating without difficulty passing gas, last BM Saturday some history of constipation but usually has bm daily no fevers or chills Physical Exam Constitutional: WD/WN, vitals as above cooperative and comfortable; no acute distress and not ill appearing Respiratory: normal respiratory effort; no respiratory distress, no labored breathing and no retractions Gastrointestinal (Abdomen): Inspection/Auscultation: abdomen normal to inspection; abdomen not distended Percussion/Palpation: abdomen soft; abdomen nontender, no guarding, abdomen not rigid and abdomen not firm Skin: no rashes, warm and dry Psychiatric: A+Ox3, euthymic affect Results & Data Vital Signs (Past 12 Hours) Vital Signs Temp Pulse Resp BP Pulse Ox O2 Del Method 07/29/24 07:27 36.9 C 92 H 16 136/88 97 Room Air Laboratory Results 07/29/24 Range/Units 05:50 WBC 11.07 H (4.8-10.8) K/ul RBC 3.63 L (4.20-5.40) M/uL Hgb 11.4 L (12.0-16.0) g/dl Hct 34.0 L (37.0-47.0) % MCV 93.7 (80.0-100.0) fL MCH 31.4 (25.0-34.0) pg MCHC 33.5 (32.0-36.0) g/dL RDW Std Deviation 42.0 (36.4-46.3) fL RDW Coeff of Peggy 12.1 (11.5-14.5) % Plt Count 276 (130-400) K/uL MPV 10.8 (9.4-12.4) fL Immature Gran % (Auto) 0.5 % Neut % (Auto) 66.5 % Lymph % (Auto) 24.1 % [place] % (Auto) 7.3 % Eos % (Auto) 1.2 % Baso % (Auto) 0.4 % Neut # (Auto) 7.37 H (1.40-6.50) K/uL Lymph # (Auto) 2.67 (1.20-3.40) K/uL [place] # (Auto) 0.81 H (0.11-0.59) K/uL Eos # (Auto) 0.13 (0.00-0.50) K/uL Baso # (Auto) 0.04 (0.00-0.20) K/uL Immature Gran # (Auto) 0.05 (0.01-0.20) K/uL Sodium 141 (136-145) mmol/L Potassium 3.9 (3.5-5.1) mmol/L Chloride 109 H (98-107) mmol/L Carbon Dioxide 25 (21-32) mmol/L Anion Gap 7 (3-11) BUN 13 (6-23) mg/dl Creatinine 0.52 L (0.6-1.2) mg/dl Est Cr Clr Drug Dosing 109.2 ml/min eGFR 108.97 BUN/Creatinine Ratio 25.0 H (10-20) Glucose 74 (70-99(Fasting)) mg/dl Calcium 9.2 (8.6-10.3) mg/dl Magnesium 2.1 (1.7-2.4) mg/dl Microbiology 07/27/24 19:28 Aerobic Blood Culture - Preliminary Blood No growth in Aerobic bottle after 24 hours. Anaerobic Blood Culture - Preliminary No growth in Anaerobic bottle after 24 hours. 07/27/24 19:12 Aerobic Blood Culture - Preliminary Blood No growth in Aerobic bottle after 24 hours. Anaerobic Blood Culture - Preliminary No growth in Anaerobic bottle after 24 hours.
--- NOTE | 2024-07-29 12:48 | Hospitalist Progress Note ---
Date of Service July 29, 2024 Assessment & Plan (1) Diverticulitis of sigmoid colon: Plan: Patient is a 54 year old female presenting to the emergency department today with complaint of abdominal pain described as "burning that radiates to my back" x 3 days. Past medical history of Hypertension, Grave's disease (currently in remission), s/p ovarian cystectomy, and history of knee surgery. CT of the abdomen and pelvis showed sigmoid diverticulitis. Inflamed diverticulum versus contained perforation/fluid collection adjacent to the sigmoid colon measuring 1.7 x 1.6 cm. No evidence of abscess * Admitted to [place] * NPO with Iv fluid replacement * Continue Zosyn Q8 hours * Surgical consult ordered- appreciate input and recommendation * Toradol as needed for pain Remains stable and denies any significant symptoms. Abdominal pain has improved and does not have any nausea or vomiting White count has been improving and remains afebrile Has been getting oral sips and chips If remains stable will start clears from tomorrow Clinically much better without any significant symptoms Will start clears from today and if tolerated advance to full liquid and later on regular diet tomorrow Likely discharge tomorrow (2) HTN (hypertension): Plan: Continue home regimen with Atenolol Plan DVT Ppx: SCDs Code status: Full PCP: Dr. Manoj Ogden Dispo: Admit to Med/Surg Admission and Anticipated Discharge Date Admission Date: July 27, 2024 Subjective 07/28/2024 The patient was seen and examined in medical floor She has been feeling much better and has less abdominal pain without any nausea and/or vomiting again Denies any other significant symptoms 07/29/2024 The patient was seen and examined in medical floor She has been feeling much better with less abdominal discomfort and/or pain and no nausea no vomiting and her bowel movement She was started with clears orally by the surgery team Review of Systems Review of Systems: All systems reviewed and unremarkable except as noted below Physical Exam Physical Exam: Sitting at the edge of the bed without any acute distress Constitutional: well developed, well nourished and + ill appearing Eyes: PERRL, conjunctivae normal, anicteric sclerae ENMT: external ear and nose normal, oropharynx normal Neck: trachea midline, no thyromegaly Respiratory: no respiratory distress Auscultation: lungs clear to auscultation bilaterally Cardiovascular: Rate/Rhythm: regular rate and regular rhythm; not tachycardic Heart Sounds: normal S1 and normal S2; no murmur Extremities: no edema Gastrointestinal (Abdomen): Inspection/Auscultation: normal bowel sounds; abdomen not distended Percussion/Palpation: abdomen soft; abdomen nontender ( mildly tender in the left lower quadrant) Neurologic: normal touch/pain/proprioception and moves all extremities; no focal motor deficits Psychiatric: A+Ox3, euthymic affect Lymphatic: no cervical or axillary lymphadenopathy Results & Data Results & Data Vital Signs (Past 12 Hours) Vital Signs Temp Pulse Resp BP Pulse Ox O2 Del Method 07/29/24 07:27 36.9 C 92 H 16 136/88 97 Room Air Laboratory Results Short CBC 07/29/24 Range/Units 05:50 WBC 11.07 H (4.8-10.8) K/ul Hgb 11.4 L (12.0-16.0) g/dl Hct 34.0 L (37.0-47.0) % Plt Count 276 (130-400) K/uL BMP 07/29/24 05:50 Sodium 141 Potassium 3.9 Chloride 109 H Carbon Dioxide 25 BUN 13 Creatinine 0.52 L Glucose 74 Calcium 9.2 Medications Administered Current Inpatient Medications Acetaminophen (Acetaminophen 325 Mg Tab) 650 mg PO Q4H PRN PRN Reason: pain/fever Stop: 08/26/24 22:28 Last Admin: 07/28/24 08:10 Dose: 650 mg Atenolol (Atenolol 25 Mg Tablet) 25 mg PO BID [facility] Stop: 08/27/24 08:59 Last Admin: 07/29/24 08:11 Dose: 25 mg Piperacillin Sod/Tazobactam Sod (Zosyn) 4.5 gm in 100 mls @ 25 mls/hr IV Q8H [facility]; Protocol Stop: 08/07/24 00:00 Last Infusion: 07/29/24 12:26 Dose: Infused Ketorolac Tromethamine (Ketorolac Tromethamine 15 Mg/Ml Vial) 15 mg IV Q6H PRN PRN Reason: Pain Stop: 08/01/24 22:28 Last Admin: 07/28/24 23:58 Dose: 15 mg Magnesium Oxide (Magnesium Oxide 400 Mg Tab) 400 mg PO DAILY [facility] Stop: 08/27/24 08:59 Last Admin: 07/29/24 08:11 Dose: 400 mg Ondansetron HCl (Ondansetron Inj 2 Mg/Ml 2 Ml Vial) 4 mg IV Q6H PRN PRN Reason: Nausea Stop: 08/26/24 22:28
[2024-07-30 07:23] VITALS: BP 121/82; PULSE 74; RESP 18; TEMP 98.1; O2SAT 95
[2024-07-30 07:42] LABS: Basophils # (auto) 0.05 K/uL (0.00-0.20); Basophils % (auto) 0.5 %; Eosinophils # (auto) 0.11 K/uL (0.00-0.50); Eosinophils % (auto) 1.1 %; Hematocrit (blood only) 36.5 % (37.0-47.0); Hemoglobin 12.2 g/dl (12.0-16.0); Immature Granulocytes # (auto) 0.04 K/uL (0.01-0.20); Immature Granulocytes % (auto) 0.4 %; Lymphocytes # (auto) 2.15 K/uL (1.20-3.40); Lymphocytes % (auto) 21.4 %; Mean Corpuscular Hemoglobin 30.9 pg (25.0-34.0); Mean Corpuscular Hgb Conc 33.4 g/dL (32.0-36.0); Mean Corpuscular Volume 92.4 fL (80.0-100.0); Mean Platelet Volume 10.3 fL (9.4-12.4); Monocytes # (auto) 0.74 K/uL (0.11-0.59); Monocytes % (auto) 7.4 %; Neutrophils # (auto) 6.96 K/uL (1.40-6.50); Neutrophils % (auto) 69.2 %; Platelet Count 300 K/uL (130-400); RDW Standard Deviation 40.9 fL (36.4-46.3); Red Blood Count 3.95 M/uL (4.20-5.40); White Blood Count 10.05 K/ul (4.8-10.8)
[2024-07-30 08:12] LABS: BUN Creatinine Ratio 13.8 (10-20); Calcium 9.8 mg/dl (8.6-10.3); Creatinine Clr Calc Pharmacy 97.9 ml/min; Magnesium 2.1 mg/dl (1.7-2.4); Potassium 3.9 mmol/L (3.5-5.1)
--- NOTE | 2024-07-30 08:49 | Surgery Progress Note ---
Date of Service July 30, 2024 Assessment & Plan (1) Diverticulitis of sigmoid colon: Plan: pain resolved regular diet discharge on 10 days of po abx per medical team will sign off Admission and Anticipated Discharge Date Admission Date: July 27, 2024 Subjective pain resolved taking po well no chills Review of Systems Constitutional: no fever, no chills and no anorexia Respiratory: no cough and no dyspnea Cardiovascular: no chest pain Gastrointestinal: no abdominal pain, no nausea, no vomiting and no change in bowel habits Genitourinary: no dysuria Neurologic: no localized weakness and no generalized weakness Psychiatric: no behavioral changes Physical Exam Constitutional: WD/WN, vitals as above Eyes: no scleral abnormality ENMT: external ear and nose normal, oropharynx normal Neck: trachea midline Respiratory: normal respiratory effort, lungs clear to auscultation Cardiovascular: RRR, no murmur, no edema Gastrointestinal (Abdomen): Inspection/Auscultation: abdomen normal to inspec tion and normal bowel sounds; abdomen not distended Percussion/Palpation: abdomen soft; abdomen nontender, no guarding and abdomen not rigid Musculoskeletal: Head/Neck/Chest: normocephalic and head atraumatic Results & Data Vital Signs (Past 12 Hours) Vital Signs Temp Pulse Resp BP Pulse Ox O2 Del Method 07/30/24 07:22 36.7 C 74 18 121/82 95 Room Air
--- NOTE | 2024-07-30 12:49 | Hospitalist Progress Note ---
Date of Service July 30, 2024 Assessment & Plan (1) Diverticulitis of sigmoid colon: Plan: Patient is a 54 year old female presenting to the emergency department today with complaint of abdominal pain described as "burning that radiates to my back" x 3 days. Past medical history of Hypertension, Grave's disease (currently in remission), s/p ovarian cystectomy, and history of knee surgery. CT of the abdomen and pelvis showed sigmoid diverticulitis. Inflamed diverticulum versus contained perforation/fluid collection adjacent to the sigmoid colon measuring 1.7 x 1.6 cm. No evidence of abscess * Admitted to [place] * NPO with Iv fluid replacement * Continue Zosyn Q8 hours * Surgical consult ordered- appreciate input and recommendation * Toradol as needed for pain Remains stable and denies any significant symptoms. Abdominal pain has improved and does not have any nausea or vomiting White count has been improving and remains afebrile Has been getting oral sips and chips If remains stable will start clears from tomorrow Clinically much better without any significant symptoms Will start clears from today and if tolerated advance to full liquid and later on regular diet tomorrow She has been tolerating regular diet Remains totally asymptomatic and has been ambulating in the hallway without any difficulties She will be discharged on oral Augmentin to continue to finish the course for 10 days in total (2) HTN (hypertension): Plan: Continue home regimen with Atenolol Plan DVT Ppx: SCDs Code status: Full PCP: Dr. Manoj Ogden Dispo: Admit to Med/Surg Admission and Anticipated Discharge Date Admission Date: July 27, 2024 Subjective 07/28/2024 The patient was seen and examined in medical floor She has been feeling much better and has less abdominal pain without any nausea and/or vomiting again Denies any other significant symptoms 07/29/2024 The patient was seen and examined in medical floor She has been feeling much better with less abdominal discomfort and/or pain and no nausea no vomiting and her bowel movement She was started with clears orally by the surgery team 07/30/2024 The patient was seen and examined in medical floor She has been feeling much better without any symptoms Tolerating regular diet and ambulating in the hallway without any difficulties She will be discharged this afternoon Review of Systems Review of Systems: All systems reviewed and unremarkable except as noted below Physical Exam Physical Exam: Sitting at the edge of the bed without any acute distress Constitutional: well developed, well nourished and + ill appearing Eyes: PERRL, conjunctivae normal, anicteric sclerae ENMT: external ear and nose normal, oropharynx normal Neck: trachea midline, no thyromegaly Respiratory: no respiratory distress Auscultation: lungs clear to auscultation bilaterally Cardiovascular: Rate/Rhythm: regular rate and regular rhythm; not tachycardic Heart Sounds: normal S1 and normal S2; no murmur Extremities: no edema Gastrointestinal (Abdomen): Inspection/Auscultation: normal bowel sounds; abdomen not distended Percussion/Palpation: abdomen soft; abdomen nontender ( mildly tender in the left lower quadrant) Musculoskeletal: No acute arthritis involving any of the joint Neurologic: normal touch/pain/proprioception and moves all extremities; no focal motor deficits Psychiatric: A+Ox3, euthymic affect Lymphatic: no cervical or axillary lymphadenopathy Results & Data Results & Data Vital Signs (Past 12 Hours) Vital Signs Temp Pulse Resp BP Pulse Ox O2 Del Method 07/30/24 07:22 36.7 C 74 18 121/82 95 Room Air Laboratory Results Short CBC 07/30/24 Range/Units 07:15 WBC 10.05 (4.8-10.8) K/ul Hgb 12.2 (12.0-16.0) g/dl Hct 36.5 L (37.0-47.0) % Plt Count 300 (130-400) K/uL BMP 07/30/24 07:15 Sodium 141 Potassium 3.9 Chloride 107 Carbon Dioxide 29 BUN 8 Creatinine 0.58 L Glucose 90 Calcium 9.8 Medications Administered Current Inpatient Medications Acetaminophen (Acetaminophen 325 Mg Tab) 650 mg PO Q4H PRN PRN Reason: pain/fever Stop: 08/26/24 22:28 Last Admin: 07/28/24 08:10 Dose: 650 mg Atenolol (Atenolol 25 Mg Tablet) 25 mg PO BID [facility] Stop: 08/27/24 08:59 Last Admin: 07/30/24 08:05 Dose: 25 mg Piperacillin Sod/Tazobactam Sod (Zosyn) 4.5 gm in 100 mls @ 25 mls/hr IV Q8H [facility]; Protocol Stop: 08/07/24 00:00 Last Infusion: 07/30/24 11:54 Dose: Infused Ketorolac Tromethamine (Ketorolac Tromethamine 15 Mg/Ml Vial) 15 mg IV Q6H PRN PRN Reason: Pain Stop: 08/01/24 22:28 Last Admin: 07/28/24 23:58 Dose: 15 mg Magnesium Oxide (Magnesium Oxide 400 Mg Tab) 400 mg PO DAILY [facility] Stop: 08/27/24 08:59 Last Admin: 07/30/24 08:26 Dose: 400 mg Ondansetron HCl (Ondansetron Inj 2 Mg/Ml 2 Ml Vial) 4 mg IV Q6H PRN PRN Reason: Nausea Stop: 08/26/24 22:28
[2024-07-30] MEDS: AMOXICILLIN/CLAVULANATE 875 MG TAB PO ONE (13:15)
--- NOTE | 2024-07-31 08:22 | Discharge Summary ---
Date of Service July 31, 2024 Admission HPI Per Admitting Provider Patient is a 54 year old female presenting to the emergency department today with complaint of abdominal pain described as "burning that radiates to my back" x 3 days. Past medical history of Hypertension, Grave's disease (currently in remission), s/p ovarian cystectomy, and history of knee surgery. In the emergency department, she is hemodynamically stable and nontoxic appearing. Leukocytosis with white count 16.5. No evidence of impaired renal functioning or UTI. Blood culture pending. CT of Abdomen and pelvis revealing sigmoid diverticulitis with inflamed diverticulum versus contained perforation/fluid collection adjacent to the sigmoid colon measuring 1.7 x 1.6 cm. Moderate amount of retained colonic stool. Zosyn initiated. Pain was controlled at the time of my exam, as she had received ketorolac prior. Associated symptoms of bloating, mild discomfort with urination, and constipation was reported. She denies fevers, illness, chest pain, breathing difficulty, N/V/D, changes to diet, skin rashes or lesions. History obtained primarily from the patient. Her was at bedside and provided additional information regarding history of present illness. Admission Exam Per Admitting Provider Constitutional: WD/WN, vitals as above Eyes: PERRL, conjunctivae normal, anicteric sclerae ENMT: external ear and nose normal, oropharynx normal Respiratory: normal respiratory effort, lungs clear to auscultation Cardiovascular: RRR, no murmur, no edema Gastrointestinal (Abdomen): Inspection/Auscultation: normal bowel sounds Percussion/Palpation: + abdomen tender (periumbilical, LUQ, LLQ) and abdomen soft; no abdominal mass and no ascites Musculoskeletal: no cyanosis or clubbing, extremities motor strength 5/5 Skin: no rashes, warm and dry Neurologic: PERRL, EOMI, accommodation nl, no face palsy, no dysarthria Psychiatric: A+Ox3, euthymic affect Principal Diagnosis Sigmoid diverticulitis, hypertension Discharge Exam Sitting at the edge of the bed without any acute distress Constitutional well developed, well nourished and + ill appearing Eyes PERRL, conjunctivae normal, anicteric sclerae ENMT external ear and nose normal, oropharynx normal Neck trachea midline, no thyromegaly Respiratory no respiratory distress Auscultation: lungs clear to auscultation bilaterally Cardiovascular Rate/Rhythm: regular rate and regular rhythm; not tachycardic Heart Sounds: normal S1 and normal S2; no murmur Extremities: no edema Gastrointestinal (Abdomen) Inspection/Auscultation: normal bowel sounds; abdomen not distended Percussion/Palpation: abdomen soft; abdomen nontender ( mildly tender in the left lower quadrant) Neurologic normal touch/pain/proprioception and moves all extremities; no focal motor deficits Psychiatric A+Ox3, euthymic affect Lymphatic no cervical or axillary lymphadenopathy Discharge Data Allergies Allergy/AdvReac Type Severity Reaction Status Date / Time No Known Allergies Allergy Unknown Verified 07/27/24 17:40 Consultations 07/27/24 22:29 Consult General Surgery Routine Ordered Studies 07/27/24 16:33 CT abd pelvis IV con only Stat Hospital Course (1) Diverticulitis of sigmoid colon: Patient is a 54 year old female presenting to the emergency department today with complaint of abdominal pain described as "burning that radiates to my back" x 3 days. Past medical history of Hypertension, Grave's disease (currently in remission), s/p ovarian cystectomy, and history of knee surgery. CT of the abdomen and pelvis showed sigmoid diverticulitis. Inflamed diverticulum versus contained perforation/fluid collection adjacent to the sigmoid colon measuring 1.7 x 1.6 cm. No evidence of abscess * Admitted to NH * NPO with Iv fluid replacement * Continue Zosyn Q8 hours * Surgical consult ordered- appreciate input and recommendation * Toradol as needed for pain Remains stable and denies any significant symptoms. Abdominal pain has improved and does not have any nausea or vomiting White count has been improving and remains afebrile Has been getting oral sips and chips If remains stable will start clears from tomorrow Clinically much better without any significant symptoms Will start clears from today and if tolerated advance to full liquid and later on regular diet tomorrow She has been tolerating regular diet Remains totally asymptomatic and has been ambulating in the hallway without any difficulties She will be discharged on oral Augmentin to continue to finish the course for 10 days in total (2) HTN (hypertension): Continue home regimen with Atenolol Plan DVT Ppx: SCDs Code status: Full PCP: Dr. Manoj Ogden Dispo: Admit to Med/Surg Total Time Total Time Spent Total Time Spent (In Minutes): 35 Minutes Discharge Plan Discharge Items Patient Disposition: Home - Self-Care Reason For Visit: SIGMOID DIVERTICULITIS Discharge Diagnosis: Sigmoid diverticulitis, hypertension Condition on Discharge: Good Activity: Resume your previous activity Non-emergency contact: Primary Care Provider Call non-emergency contact if: you have any medication questions and your symptoms worsen Follow-up/Referrals: Manoj Ogden MD [Primary Care Provider] - (Date & Time 08/04/2024 11:00 AM Provider: Manoj Ogden III, MD [facility] ) Diet: Regular and Low Sodium (2gm) Addtl Attending Provider Instructions: Please take precautions to avoid fall Finish the course of antibiotic You can try some probiotics [id number] while you are on antibiotic Please keep your appointment with the healthcare provider Pending Studies at Discharge: No Stand-Alone Forms: My [employer], Smoking Cessation Medications and DC Order Prescriptions: New amoxicillin-pot clavulanate 875-125 mg tablet 1 tab PO BID Qty: 14 0RF Continued multivitamin Tablet 1 tab PO DAILY magnesium 200 mg Tablet 200 mg PO DAILY omega [id number] oil [Fish Oil] 1,000 (120-180) mg Capsule 1 cap PO DAILY Zepbound 5 mg/0.5 mL pen injector 5 mg SUBCUT WK Rx Instructions: [facility] [employer] Probiotic 1 cap PO DAILY Turmeric Powder 1 tbsp PO DAILY cholecalciferol (vitamin D3) 25 mcg (1,000 unit) Capsule 25 mcg PO DAILY Discontinued atenolol 100 mg tablet 50 mg PO BID Discharge Orders: Discharge Order (Routine); Ordered 07/30/24 Ordered By: Hector Welsh Admission Data Admit Date/Time: 07/27/24 19:34 Attending Provider: Hector Welsh Admit Provider: Estelle Johnson Primary Care Provider: Manoj Ogden Other Providers: Frank Rodriguez Cindy D. Other Interventions: Discharge Summary Assessment (RN) Last Done: 07/30/24 13:05
== END 2024-07-30 13:29 | disposition home or self-care (01) | DRG 392 ==
LOC: ED 15:47 → SUATTDRO 19:34 → 3W 19:34 → INTOOBSV 19:34 → 3W 22:15